=== PATIENT | female | born 1960 | race Hispanic/Latino ===

== ENCOUNTER 2017-09-27 21:19 | Inpatient (IN) | payer BC ==
[2017-09-27 21:28] VITALS: BMI 26.5
[2017-09-27 22:41] LABS: ALB/GLOB RATIO 1.6 (1.1-1.8); ALBUMIN 4.2 g/dL (3.0-4.8); ALT/SGPT 21 U/L (7-56); AST/SGOT 32 U/L (14-36); BLOOD UREA NITROGEN 21 mg/dL (7-21); CALCIUM 9.9 mg/dL (8.4-10.5); GFR AFRICAN-AMERICAN > 60; GFR NON-AFRICAN AMERICAN 57
[2017-09-27 22:52] LABS: HEMOGLOBIN 13.8 g/dL (12.0-16.0); MEAN CELL VOLUME 84.8 fl (80.0-105.0); MEAN CORPUSCULAR HEMOGLOBIN 29.2 pg (25.0-35.0); MEAN CORPUSCULAR HGB CONC 34.4 g/dl (31.0-37.0); MEAN PLATELET VOLUME 10.3 fl (7.0-11.0); RBC 4.73 10^6/uL (3.5-6.1); RED CELL DISTRIBUTION WIDTH 12.7 % (11.5-14.5); WHITE BLOOD COUNT 9.4 10^3/ul (4.5-11.0)
--- NOTE | 2017-09-27 23:00 | ED PDOC ---
Arrival/HPI - General Chief Complaint: Abdominal Pain Time Seen by Provider: 09/27/17 22:00 Historian: Patient - History of Present Illness Narrative History of Present Illness (Text): 09/27/17 22:35 Patient is a 57 year old female with a past medical history of Stage 4 ovarian cancer (s/p hysterectomy and chemo) presenting to the emergency room with 3 day history of abdominal pain. Patient woke up with epigastric pain on 2 days ago. She went to see her PMD who thought she had gastritis and prescribed protonix. The patient has been taking protonix without relief. The pain has gotten worse and has started to move down to the lower portion of her abdomen. She describes the pain as soreness with episodes of intermittent sharpness. The pain has been almost constant for the past 4-5 hours and caused her to come to the emergency room. She has been eating less the past but attempted to eat more this evening but the pain most severe now. She forced herself to vomit once on Monday but has not vomited since. She experienced diarrhea but has She denies fevers, chills, nausea, Time/Duration: < week Symptom Course: Intermittent Quality: Stabbing, Other (soreness) Past Medical History - Provider Review Nursing Documentation Reviewed: Yes - Infectious Disease Hx of Infectious Diseases: None - Reproductive Menopause: Yes - Past Medical History Past Medical History: No Previous - Cardiac Hx Cardiac Disorders: Yes Hx Mitral Valve Prolapse: Yes - Pulmonary Hx Respiratory Disorders: Yes Other/Comment: 04-21-16 COLLAPSE OF L LUNG LOWER LOBE,PARTIAL COLLAPSE ( ATELECTASIS) OF RIGHT LOWER LOBE - Neurological Hx Neurological Disorder: No - HEENT Hx HEENT Disorder: No - Renal Hx Renal Disorder: No - Endocrine/Metabolic Hx Endocrine Disorders: No - Hematological/Oncological Hx Blood Disorders: No - Integumentary Hx Dermatological Disorder: Yes Other/Comment: 04-21-16 ASCITES,BILATERAL PITTING EDEMA +3. - Musculoskeletal/Rheumatological Hx Musculoskeletal Disorders: No - Gastrointestinal Hx Gastrointestinal Disorders: Yes (ASCITES) Hx Diverticulitis: Yes Hx Gastroesophageal Reflux: Yes - Genitourinary/Gynecological Hx Genitourinary Disorders: Yes (C/S X 1) Hx Ovarian Cancer: Yes (Satge 4) Other/Comment: 04-21-26 CT SCAN SHOWED A MASS RIGHT ASPECT OF PELVIS-OVARIAN CYST - Psychiatric Hx Psychophysiologic Disorder: No Hx Anxiety: No Hx Bipolar Disorder: No Hx Depression: No Hx Emotional Abuse: No Hx Hallucinations: No Hx Panic Disorder: No Hx Post Traumatic Stress Disorder: No Hx Psychosis: No Hx Physical Abuse: No Hx Schizophrenia: No Hx Sexual Abuse: No Hx Substance Use: No - Surgical History Hx Section: Yes - Anesthesia Hx Anesthesia: Yes Hx Anesthesia Reactions: No Hx Malignant Hyperthermia: No - Suicidal Assessment Feels Threatened In Home Enviroment: No Family/Social History - Physician Review Nursing Documentation Reviewed: Yes Family/Social History: Unknown Family HX Smoking Status: Never Smoked Hx Alcohol Use: Yes (OCCASIONAL WINE) Hx Substance Use: No Hx Substance Use Treatment: No Allergies/Home Meds Allergies/Adverse Reactions: Allergies No Known Allergies Allergy (Verified 09/27/17 21:27) Home Medications: Home Meds Medication Instructions Recorded Confirmed Pantoprazole [Protonix EC Tab] 40 mg PO DAILY 09/27/17 09/27/17 Review of Systems - Physician Review All systems were reviewed & negative as marked: Yes - Review of Systems Constitutional: Normal. absent: Fatigue, Fevers Eyes: Normal. absent: Vision Changes ENT: Normal. absent: Sore Throat, Rhinorrhea Respiratory: Normal. absent: SOB Cardiovascular: Normal. absent: Chest Pain, Palpitations Gastrointestinal: Abdominal Pain, Diarrhea, Vomiting (once - 2 days ago), Appetite Changes (decreased). absent: Constipation, Nausea Musculoskeletal: Normal Skin: Normal. absent: Rash Neurological: Normal. absent: Headache Endocrine: Normal Psychiatric: Normal. absent: Anxiety, Depression Physical Exam Vital Signs Reviewed: Yes Vital Signs Temp Pulse Resp BP Pulse Ox 09/28/17 01:43 82 16 160/88 H 98 09/27/17 23:22 98.2 F 85 19 157/81 H 99 09/27/17 21:33 98.3 F 92 H 18 178/133 H 99 Temperature: Afebrile Blood Pressure: Hypertensive Pulse: Regular Respiratory Rate: Normal Appearance: Positive for: Non-Toxic, Ill-Appearing, Uncomfortable Pain Distress: None Mental Status: Positive for: Alert and Oriented X 3 - Systems Exam Head: Present: Atraumatic, Normocephalic Conjunctiva: Present: Normal Mouth: Present: Moist Mucous Membranes Nose (External): Present: Atraumatic Neck: Present: Normal Range of Motion Respiratory/Chest: Present: Clear to Auscultation, Good Air Exchange. No: Respiratory Distress, Accessory Muscle Use Cardiovascular: Present: Regular Rate and Rhythm, Normal S1, S2. No: Murmurs Abdomen: Present: Tenderness (diffuse ), Scars. No: Distention, Normal Bowel Sounds (diffuse), Peritoneal Signs, Rebound, Guarding, McBurney's Point Tender, Rovsing's Sign Present Back: Present: Normal Inspection Upper Extremity: Present: Normal Inspection. No: Cyanosis, Edema Lower Extremity: Present: Normal Inspection. No: Edema Neurological: Present: GCS=15, Speech Normal, Motor Func Grossly Intact Skin: Present: Warm, Dry, Normal Color. No: Rashes Psychiatric: Present: Alert, Oriented x 3, Normal Insight, Normal Concentration Medical Decision Making ED Course and Treatment: 09/27/17 22:24 Orders: * CBC * CMP * PTT * Morphine 6mg IVP 09/28/17 00:12 Patient is still in severe pain. * Morphine 4mg IVP 09/28/17 01:[address] discussed with patient and her that results are worrisome that she has mets to her bowel. Patient and her were very upset as they thought she was cancer free. She was informed of plan to admit to hospital primary for pain control. Patient agrees. A call was placed for patient's PMD Dr. All Marks for admission. 09/28/17 02:[address] Marks about possible mets to bowel. Agreed to take patient on his service. Admission order placed. Re-evaluation Time: 01:30 - Lab Interpretations Lab Results: 09/27/17 22:24 09/27/17 22:24 Lab Results 09/27/17 22:24: Sodium 138, Potassium 4.6, Chloride 102, Carbon Dioxide 26, Anion Gap 15, BUN 21, Creatinine 1.0, Est GFR ( Amer) > 60, Est GFR (Non- Af Amer) 57, Random Glucose 99, Calcium 9.9, Total Bilirubin 0.5, AST 32, ALT 21 , Alkaline Phosphatase 104, Total Protein 6.9, Albumin 4.2, Globulin 2.7, Albumin/Globulin Ratio 1.6 09/27/17 22:24: APTT 27.9 09/27/17 22:24: WBC 9.4 D, RBC 4.73, Hgb 13.8 D, Hct 40.1, MCV 84.8 D, MCH 29.2, MCHC 34.4, RDW 12.7, Plt Count 240, MPV 10.3 I have reviewed the lab results: Yes - RAD Interpretation Narrative RAD Interpretations (Text): 09/28/17 01:16 Abd/Pelvis CT w/ IV contrast: 1. Small volume ascites. 2. Peritoneal nodularity worrisome for carcinomatosis. Subpleural nodularity. This is increased as compared to March 23, 2017. 3. Wall thickening of a couple of loops of small bowel in the right lower quadrant suggestive of enteritis. Ischemia must be considered. Radiology Orders: 09/27/17 22:35 ABD & PELVIS IV CONTRAST ONLY [CT] Stat Medical Device Sales Representative: Radiologist - Medication Orders Current Medication Orders: Discontinued Medications Morphine Sulfate (Morphine) 6 mg IVP STAT STA Stop: 09/27/17 22:16 Last Admin: 09/27/17 22:39 Dose: 6 mg MAR Pain Assessment Document 09/27/17 22:39 GMI (Rec: 09/27/17 22:40 GMI [id number]) Pain Reassessment Is this a pain reassessment? Yes Sleep Is patient sleeping during reassessment? No Presence of Pain Presence of Pain Yes Pain Scale Used Pain Scale Used Numeric Location Pain Location Body Site Abdomen Description Description Constant Intensity of Pain at present 10 Pain Behavior Moaning Crying Alleviating Factors Medication IVP Administration Document 09/27/17 22:39 GMI (Rec: 09/27/17 22:40 GMI [id number]) Charges for Administration # of IVP Administrations 1 Morphine Sulfate (Morphine) 4 mg IVP STAT STA Stop: 09/28/17 00:13 Last Admin: 09/28/17 00:23 Dose: 4 mg MAR Pain Assessment Document 09/28/17 00:23 JOL (Rec: 09/28/17 00:23 JOL [id number]) Pain Reassessment Is this a pain reassessment? No Sleep Is patient sleeping during reassessment? No Presence of Pain Presence of Pain Yes Pain Scale Used Pain Scale Used Numeric Location Upper or Lower Lower Pain Location Body Site Abdomen Description Intensity of Pain at present 7 Pain Behavior Withdrawal from Touch Restlessness Facial Grimacing IVP Administration Document 09/28/17 00:23 JOL (Rec: 09/28/17 00:23 [id number]) Charges for Administration # of IVP Administrations 1 Morphine Sulfate (Morphine) 6 mg IVP ONCE PRN PRN Reason: Pain, moderate (4-7) Stop: 09/28/17 02:41 Disposition/Present on Arrival - Present on Arrival Any Indicators Present on Arrival: No History of DVT/PE: No History of Uncontrolled Diabetes: No Urinary Catheter: No History of Decub. Ulcer: No History Surgical Site Infection Following: None - Disposition Have Diagnosis and Disposition been Completed?: Yes Diagnosis: Intractable abdominal pain Disposition: HOSPITALIZED Disposition Time: 01:30 Patient Plan: Admission Patient Problems: Current Active Problems Problem Status Onset Intractable abdominal pain Acute Condition: GUARDED
[2017-09-28] MEDS ORDERED: Iohexol 350 MG/100 ML VIAL ONE (00:01)
[2017-09-28] MEDS ORDERED: Morphine 4 mg/ml ISec IVP STA (00:12)
[2017-09-28] MEDS ORDERED: HYDROmorphone 1 mg/ml ISec IVP PRN (06:44)
[2017-09-28] MEDS: Pantoprazole 40 mg EC Tab PO SCH (09:35)
[2017-09-28] MEDS: Sodium Chloride 0.9% 100 ML IV SCH ×2 (09:36→11:00)
--- NOTE | 2017-09-28 10:30 | CT ---
Date of service: 09/28/2017 PROCEDURE: CT Abdomen and Pelvis with contrast HISTORY: abdominal pain COMPARISON: 04/18/2017 CT TECHNIQUE: Contrast dose: 100 cc of Omni 350 Radiation dose: Total exam DLP = 871 mGy-cm. This CT exam was performed using one or more of the following dose reduction techniques: Automated exposure control, adjustment of the mA and/or kV according to patient size, and/or use of iterative reconstruction technique. FINDINGS: LOWER THORAX: Unremarkable. LIVER: Unremarkable. No gross lesion or ductal dilatation. GALLBLADDER AND BILE DUCTS: Unremarkable. PANCREAS: Unremarkable. No gross lesion or ductal dilatation. SPLEEN: Unremarkable. ADRENALS: Unremarkable. No mass. KIDNEYS AND URETERS: Unremarkable. No hydronephrosis. No solid mass. VASCULATURE: Unremarkable. No aortic aneurysm. BOWEL: There is partial small bowel obstruction in the pelvis on the right side. There multiple dilated loops. There is a peritoneal mass in this region as seen on image 57 series 2. This measures 2.7 x 3.5 cm. APPENDIX: Normal appendix. PERITONEUM: There are new discrete peritoneal metastases. These are most visible anterior to the spleen were the largest lesion measures 1.6 x 3.3 cm. Lesions are also seen adjacent to the right lobe of the liver. The largest lesion is seen between the abdominal wall and the right lobe of the liver measuring 1.5 cm in thickness and 10 cm in length. There is also increased ascites. LYMPH NODES: Unremarkable. No enlarged lymph nodes. BLADDER: Unremarkable. REPRODUCTIVE: Unremarkable. BONES: No acute fracture. OTHER FINDINGS: None. IMPRESSION: Peritoneal metastases and ascites with partial small bowel obstruction in the right lower quadrant. See comment
[2017-09-28] MEDS ORDERED: Propofol 10 mg/ml Inj (20 ML) ONE (11:51)
[2017-09-28] MEDS ORDERED: Lidocaine 1% Inj (20ml) ONE (11:54)
--- NOTE | 2017-09-28 12:29 | CP.PCM.CON ---
History of Present Illness - History of Present Illness History of Present Illness: Akila Harry, PGY2, Heme-Onc Consult Note for Dr Manning: CC: lower abdominal pain 57 year old female with PMH stage IV ovarian carcinoma (serous or endometroid - dx 04/2016) s/p hysterectomy, oophorectomy, cholecystectomy (07/2016), 7 cycles of chemotherapy, presents for abdominal pain. Patient locates the pain as lower abdominal pain, radiating to epigastric area, crampy, 8/10, for past 4 days. States that she went to PMD and was given protonix, did not improve. Patient has accompanying watery diarrheal episodes, 2-4 per day. denies hematochezia, fevers, chills. Reports nausea. Patient states that she had a CAT abd pelvis in 03/2017, which did not show significant findings. In ED, patient afebrile, hemodynamically stable. CT abd pelvis shows omental, peritoneal mets, partial SBO, small ascites. Given morphine IV, made NPO. PMD: stage IV ovarian cancer (dx 04/2016) s/p hysterectomy, oophorectomy, cholecystectomy; diverticulosis PSH: hysterectomy, oophorectomy, cholecystectomy (07/2016) NKA FH: mother, breast cancer, mets to bone Aunt, breast cancer Cousin, ovarian cancer, SH: denies tobacco use. Occasional drinks wine. Denies drug use. Lives with . walks by self. Review of Systems - Review of Systems All systems: reviewed and no additional remarkable complaints except Review of Systems: as per HPI Past Patient History - Infectious Disease Hx of Infectious Diseases: None - Past Medical History & Family History Past Medical History?: No - Past Social History Smoking Status: Never Smoked - CARDIAC Hx Cardiac Disorders: Yes Hx Mitral Valve Prolapse: Yes - PULMONARY Hx Respiratory Disorders: Yes - NEUROLOGICAL Hx Neurological Disorder: No - HEENT Hx HEENT Problems: No - RENAL Hx Chronic Kidney Disease: No - ENDOCRINE/METABOLIC Hx Endocrine Disorders: No - HEMATOLOGICAL/ONCOLOGICAL Hx Blood Disorders: No - INTEGUMENTARY Hx Dermatological Problems: Yes - MUSCULOSKELETAL/RHEUMATOLOGICAL Hx Musculoskeletal Disorders: No Hx Falls: No - GASTROINTESTINAL Hx Gastrointestinal Disorders: Yes (ASCITES) Hx Diverticulitis: Yes Hx Gastroesophageal Reflux: Yes - GENITOURINARY/GYNECOLOGICAL Hx Genitourinary Disorders: Yes - PSYCHIATRIC Hx Psychophysiologic Disorder: No Hx Substance Use: No - SURGICAL HISTORY Hx Surgeries: Yes Other/Comment: Polyps removed - ANESTHESIA Hx Anesthesia: Yes Hx Anesthesia Reactions: No Hx Malignant Hyperthermia: No Meds Allergies/Adverse Reactions: Allergies Allergy/AdvReac Type Severity Reaction Status Date / Time No Known Allergies Allergy Verified 09/27/17 21:27 - Medications Medications: Current Medications Hydromorphone HCl (Dilaudid) 1 mg IVP Q4H PRN PRN Reason: Pain, severe (8-10) Morphine Sulfate (Morphine) 6 mg IVP ONCE PRN PRN Reason: Pain, moderate (4-7) Last Admin: 09/28/17 05:09 Dose: 6 mg Ondansetron HCl (Zofran Inj) 4 mg IVP Q4H PRN PRN Reason: Nausea/Vomiting Last Admin: 09/28/17 09:40 Dose: 4 mg Pantoprazole Sodium (Protonix Ec Tab) 40 mg PO ACB GARCIA Last Admin: 09/28/17 09:35 Dose: 40 mg Physical Exam - Constitutional Appears: Non-toxic, No Acute Distress - Head Exam Head Exam: ATRAUMATIC, NORMOCEPHALIC - Eye Exam Eye Exam: EOMI, PERRL. absent: Conjunctival injection, Nystagmus, Scleral icterus Pupil Exam: NORMAL ACCOMODATION, PERRL. absent: Irregular, Miosis, Unequal - ENT Exam ENT Exam: Mucous Membranes Moist - Neck Exam Neck exam: Positive for: Full Rom - Respiratory Exam Respiratory Exam: Clear to Auscultation Bilateral, NORMAL BREATHING PATTERN. absent: Accessory Muscle Use, Rhonchi, Wheezes, Stridor - Cardiovascular Exam Cardiovascular Exam: RRR, +S1, +S2. absent: Systolic Murmur - GI/Abdominal Exam GI & Abdominal Exam: Hypoactive Bowel Sounds, Soft, Tenderness (diffuse tenderness). absent: Guarding, Rigid Additional comments: small ascites, neg fluid wave test - Extremities Exam Extremities exam: Negative for: calf tenderness, pedal edema - Back Exam Back exam: NORMAL INSPECTION - Neurological Exam Neurological exam: Alert, Oriented x3 - Psychiatric Exam Psychiatric exam: Normal Affect, Normal Mood - Skin Skin Exam: Dry, Normal Color, Warm Results - Vital Signs Recent Vital Signs: Last Vital Signs Temp 98.5 F 09/28/17 08:39 Pulse 102 H 09/28/17 08:39 Resp 20 08/02/18 08:39 BP 142/88 09/28/17 08:39 Pulse Ox 98 09/28/17 08:39 - Labs Result Diagrams: 09/27/17 22:24 09/27/17 22:24 Labs: Laboratory Results - last 24 hr 09/28/17 09:50 Lactic Acid 0.8 Assessment & Plan - Assessment and Plan (Free Text) Assessment: 57 year old female with PMH stage IV ovarian carcinoma (serous or endometroid - dx 04/2016) s/p hysterectomy, oophorectomy, cholecystectomy (07/2016), 7 cycles of chemotherapy, presents for abdominal pain, found to have peritoneal mets, partial SBO, small ascites: - Will discuss case with patient's Oncologist Dr Soraida Best at [facility] F/u surgery, GI consult recs - CT abd pelvis: new discrete peritoneal mets. anterior to spleen, largest lesion 1.6x3.3 cm, lesion adjacent to right lobe of liver. Largest lesion seen btw abdominal wall and right lobe of liver, measuring 1.5 cm thicknes and 10 cmin length. - CT abd pelvis in 02/2017: did not show the above mentioned lesions - If patient needs surgery, then would be able to obtain biopsy of mets at the time - may be able to use same chemotherapy regimen if recurrent is occurring in more than 6 months - pain control Case discussed with Dr Manning.
--- NOTE | 2017-09-28 15:24 | CP.PCM.CON ---
History of Present Illness - History of Present Illness History of Present Illness: Surgery Consult Note for Dr. Marie 57 y o female PMhx stage IV ovarian carcinoma (diagnosed in 04/2016) s/p hysterectomy, b/l salpingo-oophorectomy, cholecystectomy (07/2016), 7 cycles of chemotherapy (last tx 12/2016), diverticulitis/colitis (), who presents with diffuse lower abdominal pain, cramping x 4 days. Pt went to PMD on day symptoms started, was given protonix and told it was likely secondary to gastritis or a gastric ulcer. Pt states pain worsens w/ meals, 10/06 in severity , stated that the pain got worse to the point yesterday evening that she had her bring her to the ED. Also c/o diarrhea over past several days, 3 episodes/day, last episode was last evening, mix of watery/soft-formed stool, non-bloody. Pt also admits to associated nausea, and reports 1 episode vomiting this am when she was inpatient. Admits to constipation, but reports passing flatus earlier this am. Denies fever, chills, hematochezia, hemoptysis, chest pain, sob, urinary complaints, or other symptoms. Pt reports of last abd CT in Mar 2017 which demonstrated no new findings. Sales Order Coordinator oncologist Dr. Soraida Murrieta ([facility]). In ED, pt was afebrile and hemodynamically stable. CT abd pelvis demonstrated omental, peritoneal mets, partial SBO, small ascites. Pt was given IV morphine and made NPO. PMhx: as described above PSurgHx: as described above Allergies: NKDA Meds: Protonix Fam hx: Mom passed from metastatic breast ca, cousin on father's side had ovarian ca, mom's sister had breast ca Soc hx: Denies smoking, alcohol, or drug use 12 point ROS as per HPI, otherwise negative. Review of Systems - Constitutional Constitutional: As Per HPI - Gastrointestinal Gastrointestinal: As Per HPI, Abdominal Pain, Constipation, Diarrhea, Nausea Past Patient History - Infectious Disease Hx of Infectious Diseases: None - Past Medical History & Family History Past Medical History?: No - Past Social History Smoking Status: Never Smoked - CARDIAC Hx Cardiac Disorders: Yes Hx Mitral Valve Prolapse: Yes - PULMONARY Hx Respiratory Disorders: Yes - NEUROLOGICAL Hx Neurological Disorder: No - HEENT Hx HEENT Problems: No - RENAL Hx Chronic Kidney Disease: No - ENDOCRINE/METABOLIC Hx Endocrine Disorders: No - HEMATOLOGICAL/ONCOLOGICAL Hx Blood Disorders: No - INTEGUMENTARY Hx Dermatological Problems: Yes - MUSCULOSKELETAL/RHEUMATOLOGICAL Hx Musculoskeletal Disorders: No Hx Falls: No - GASTROINTESTINAL Hx Gastrointestinal Disorders: Yes (ASCITES) Hx Diverticulitis: Yes Hx Gastroesophageal Reflux: Yes - GENITOURINARY/GYNECOLOGICAL Hx Genitourinary Disorders: Yes - PSYCHIATRIC Hx Psychophysiologic Disorder: No Hx Substance Use: No - SURGICAL HISTORY Hx Surgeries: Yes Other/Comment: Polyps removed - ANESTHESIA Hx Anesthesia: Yes Hx Anesthesia Reactions: No Hx Malignant Hyperthermia: No Meds Allergies/Adverse Reactions: Allergies Allergy/AdvReac Type Severity Reaction Status Date / Time No Known Allergies Allergy Verified 09/27/17 21:27 - Medications Medications: Current Medications Hydromorphone HCl (Dilaudid) 1 mg IVP Q4H PRN PRN Reason: Pain, severe (8-10) Morphine Sulfate (Morphine) 6 mg IVP ONCE PRN PRN Reason: Pain, moderate (4-7) Last Admin: 09/28/17 05:09 Dose: 6 mg Ondansetron HCl (Zofran Inj) 4 mg IVP Q4H PRN PRN Reason: Nausea/Vomiting Last Admin: 09/28/17 09:40 Dose: 4 mg Pantoprazole Sodium (Protonix Ec Tab) 40 mg PO ACB GARCIA Last Admin: 09/28/17 09:35 Dose: 40 mg Physical Exam - Constitutional Appears: Non-toxic, No Acute Distress - Head Exam Head Exam: ATRAUMATIC, NORMAL INSPECTION - Eye Exam Eye Exam: EOMI, Normal appearance, PERRL - ENT Exam ENT Exam: Mucous Membranes Moist - Respiratory Exam Respiratory Exam: Clear to Auscultation Bilateral, NORMAL BREATHING PATTERN - Cardiovascular Exam Cardiovascular Exam: REGULAR RHYTHM, +S1, +S2 - GI/Abdominal Exam Additional comments: Diffuse tenderness to palpation in all 4 quadrants, distended, decreased bowel sounds x4 - Extremities Exam Extremities exam: Positive for: normal capillary refill, normal inspection, pedal pulses present - Back Exam Back exam: FULL ROM, NORMAL INSPECTION - Neurological Exam Neurological exam: Alert, CN II-XII Intact, Oriented x3 - Skin Skin Exam: Dry, Intact, Normal Color, Warm Results - Vital Signs Recent Vital Signs: Last Vital Signs Temp 98.5 F 09/28/17 08:39 Pulse 102 H 09/28/17 08:39 Resp 20 09/28/17 08:39 BP 142/88 09/28/17 08:39 Pulse Ox 98 09/28/17 08:39 - Labs Result Diagrams: 09/29/17 05:30 09/29/17 05:30 Labs: Laboratory Results - last 24 hr 09/28/17 09:50 Lactic Acid 0.8 Assessment & Plan - Assessment and Plan (Free Text) Assessment: 57 y o female PMhx stage IV ovarian carcinoma (diagnosed in 04/2016) s/p hysterectomy, b/l salpingo-oophorectomy, cholecystectomy (07/2016), 7 cycles of chemotherapy (last tx 12/2016), diverticulitis/colitis (), who presents with diffuse lower abdominal pain, cramping x 4 days. Found to have peritoneal mets, partial SBO, small ascites. Plan: -No plan for acute surgical intervention at this time -F/u oncology, GI recs -CT abd pelvis demonstrates new discrete peritoneal mets, anterior to spleen, largest lesion 1.6 x 3.3 cm, lesion adjacent to R lobe of liver. Largest lesion seen btwn abd wall and R lobe of liver, measuring 1.5 cm thickness and 10 cm in length. -Prior CT in 02/2017 did not demonstrate above findings -Pain control -Further recommendations as per Dr. Frank Fitzgerald, DO PGY-1
--- NOTE | 2017-09-28 18:12 | CON ---
Copied To: Xavier Shaver MD Attending MD: Xavier Shaver MD DATE: 09/28/2017 CONSULTATION IN GASTROENTEROLOGY REQUESTING PHYSICIAN: All June MD. REASON FOR CONSULT: I have been asked to see this 57-year-old female diagnosed with stage IV ovarian cancer in 03/2016, status post hysterectomy and oophorectomy as well as chemotherapy, who comes to the hospital with 3 days of diffuse abdominal pain, diarrhea and 1 day of nausea, vomiting. The patient has had no appetite since her symptoms began on Monday. CT scan of the abdomen and pelvis performed in the emergency room shows omental metastasis in the left upper quadrant with ascites as well as mural thickening with dilatation of the distal small bowel. She denies any fevers, chills, hematemesis or melena. PAST MEDICAL HISTORY: Notable for stage IV ovarian cancer, diverticulitis, atelectasis and pleural effusion. PAST SURGICAL HISTORY: Notable for . SOCIAL HISTORY: She denies cigarette smoking. She does consume alcohol on a social basis. FAMILY HISTORY: Noncontributory. REVIEW OF SYSTEMS: Fourteen-point review of systems is notable for abdominal pain, nausea, vomiting and diarrhea. MEDICATIONS AT HOME: Include pantoprazole. PHYSICAL EXAMINATION: GENERAL: Middle-aged female, lying in bed, appearing comfortable. VITAL SIGNS: Reveal temperature of 98.5, blood pressure 142/88, heart rate of 102. HEENT: Reveals sclerae to be white. Conjunctivae pink. NECK: Supple. CHEST: Reveals lungs to be clear. HEART: Reveals regular rate and rhythm. ABDOMEN: Distended with ascites. There is mild diffuse tenderness. No rebound. No guarding. EXTREMITIES: Show no edema. LABORATORY DATA: Reveal white blood cell count 9.4, hemoglobin 13.8. Chemistries reveal normal electrolytes. Again, CT scan of the abdomen and pelvis reveal omental metastasis with ascites and mural thickening and dilatation of the small bowel, most likely secondary to carcinomatosis. RECOMMENDATIONS: 1. CA 19-9 level. 2. Continue supportive care including Zofran as needed for nausea and vomiting and vomiting persists, the patient may benefit from NG tube decompression. She is asking that this not be performed at this time. She vomited this morning and feels better. 3. Would keep n.p.o. 4. Would obtain Oncology consult. Note, the patient has stage IV recurrent ovarian cancer and her prognosis is extremely poor. Xavier Shaver MD [facility] # [id number]
--- NOTE | 2017-09-28 19:13 | HP ---
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 intake. The patient was initially seen in her PMD's office 3 days prior to presentation to the ED for complaint of epigastric abdominal discomfort which started after eating a hamburger. She initially endorsed mild dyspepsia associated with some bloating and epigastric pain. The patient has a history of GERD but has been off her PPI for several months. Examination at that time disclosed epigastric tenderness. The patient was restarted on her Protonix and advised that if her symptoms did not improve over the course of the following week or if her symptoms had increased to return to her PMD or to present to the ED. Over the following 36 hours she was noted to have no improvement in her symptoms and as such opted for ED evaluation. Upon arrival to the ED she was found to be afebrile and hemodynamically stable however in moderate distress secondary to epigastric abdominal pain. Routine laboratory studies were unremarkable but a CT of the abdomen and pelvis demonstrated a peritoneal nodularity worrisome for carcinomatosis and a mild small bowel obstruction. She was subsequently admitted to the general medical wen for continued management. PAST MEDICAL HISTORY: As per HPI, also mitral valve prolapse. PAST SURGICAL HISTORY: As per HPI, also , right hemicolectomy with ileocolonic anastomosis and cholecystectomy. ALLERGIES: NKDA. MEDICATIONS: Tylenol, Mylanta, Colace, and Protonix 40 mg p.o. daily. FAMILY HISTORY: Significant for breast cancer in her mother, ovarian cancer in her paternal cousins and COPD and CAD in her father. SOCIAL HISTORY: The patient has no history of toxic habits. She is and lives with her . REVIEW OF SYSTEMS: A 12-point review of systems is negative except as per HPI. PHYSICAL EXAMINATION: VITAL SIGNS: Temperature 98.5, pulse 100, blood pressure 142/88, respiratory rate 18, and oxygen saturation 99% on room air. GENERAL: Mild distress secondary to epigastric abdominal pain. HEENT: PERRL. EOMI. No scleral icterus. No conjunctival pallor. Dry mucous membranes are noted. NECK: No JVD, no bruits. LUNGS: Decreased breath sounds at the bases. CARDIOVASCULAR: Tachycardic. Normal S1 and S2. ABDOMEN: Hypoactive bowel sounds, soft, tender to palpation to epigastrium with voluntary guarding. No rigidity, no tympany. EXTREMITIES: No edema. NEUROLOGIC: Awake, alert, and oriented x 3. No focal motor deficits. LABORATORY DATA: WBC 9.4, hemoglobin 14, hematocrit 40, and platelets 240. Chemistry reviewed and unremarkable. IMAGING STUDIES: CT of the abdomen and pelvis with contrast is pending. ASSESSMENT: The patient is a 57 year old woman with a past medical history of stage GARIMA adenocarcinoma of mullerian/gynecologic tract origin s/p chemotherapy s/p exploratory laparotomy s/p tumor debulking s/p GEOFF/BSO, GERD and diverticulosis who presented for a 3 day history of epigastric abdominal pain associated with nausea, vomiting and inability to tolerate p.o. intake. PLAN: 1. Small bowel obstruction. CT abdomen reviewed and no urgent need for NG tube placement. Continue with bowel rest. Continue Zofran and Dilaudid as needed. Continue IVF hydration. Input from Dr. Shaver and Dr. Marie appreciated. 2. Stage Garima adenocarcinoma of Mullerian tract origin, now with likely omental mets. Dr. Manning has been consulted for further evaluation and recommendations. The patient follows regularly at [facility] [place] with Dr. Soraida Ni. We will coordinate care with their facility. 3. GERD. Resume Protonix 40 mg IV daily. 4. Prophylaxis. Continue Protonix for GI prophylaxis. DVT prophylaxis not indicated as the patient is ambulatory. CODE STATUS: Full code. All June MD MTDIron
[2017-09-29 06:33] LABS: BASO # 0.03 K/mm3 (0.0-2.0); BASO % 0.5 % (0.0-3.0); EOS # 0.2 (0.0-0.7); EOS % 3.8 % (1.5-5.0); GRAN # 3.73 (1.4-6.5); GRAN % 59.7 % (50.0-68.0); HEMOGLOBIN 12.7 g/dL (12.0-16.0); LYMPH # 1.6 (1.2-3.4); LYMPH % 25.8 % (22.0-35.0); MEAN CELL VOLUME 86.8 fl (80.0-105.0); MEAN CORPUSCULAR HEMOGLOBIN 28.8 pg (25.0-35.0); MEAN CORPUSCULAR HGB CONC 33.2 g/dl (31.0-37.0); MEAN PLATELET VOLUME 10.1 fl (7.0-11.0); MONO # 0.6 (0.1-0.6); MONO % 10.2 % (1.0-6.0); RBC 4.41 10^6/uL (3.5-6.1); WHITE BLOOD COUNT 6.3 10^3/ul (4.5-11.0)
[2017-09-29 07:05] LABS: ALB/GLOB RATIO 1.4 (1.1-1.8); ALBUMIN 3.7 g/dL (3.0-4.8); ALT/SGPT 28 U/L (7-56); AST/SGOT 38 U/L (14-36); BLOOD UREA NITROGEN 22 mg/dL (7-21); GFR AFRICAN-AMERICAN > 60; GFR NON-AFRICAN AMERICAN > 60
--- NOTE | 2017-09-29 09:17 | PN ---
Copied To: Xavier Shaver MD Attending MD: Xavier Shaver MD DATE: 09/29/2017 SUBJECTIVE: The patient is lying in bed. She feels a little better. She has not had any further vomiting in 24 hours. Her abdominal pain is less. She is hungry and is asking for something to eat. She has been n.p.o. She denies any fevers or chills. She has been passing flatus, but no bowel movements since her hospitalization. Her medications currently include Dilaudid, morphine sulfate, pantoprazole and Zofran. OBJECTIVE: VITAL SIGNS: Reveal temperature of 98.1, blood pressure 147/81, heart rate of 81. HEENT: Reveal sclerae to be white. Oral mucosa slightly dry. NECK: Supple. CHEST: Reveal lungs to be clear. HEART: Exam reveals regular rate and rhythm. ABDOMEN: Distended. Mild diffuse tenderness. No rebound, no guarding. EXTREMITIES: Show no edema. DATA: Laboratory data reveal white blood cell count 6.3, hemoglobin 12.7. Chemistries show BUN 22, creatinine 0.9, AST 38. CA-125 is 894. IMPRESSION: This is a 57-year-old female with history of stage IV ovarian cancer diagnosed approximately 18 months ago, now with abdominal pain, diarrhea and vomiting with CT scan of the abdomen and pelvis showing carcinomatosis peritonei with omental metastasis. Mural thickening of the small bowel with dilatation. The patient's prognosis is extremely poor. She is asking for something to eat. RECOMMENDATIONS: 1. We will start the patient on full-liquid diet. If the patient has symptoms of nausea and vomiting, we will have to make her n.p.o. again. 2. Follow up with Oncology. There are no plans for surgical intervention at this time as per rn medical surgical. Xavier Shaver MD
[2017-09-29] MEDS: Pantoprazole 40 mg EC Tab PO SCH (09:40)
--- NOTE | 2017-09-29 15:42 | CP.PCM.PN ---
Subjective - Date & Time of Evaluation Date of Evaluation: 09/29/17 Time of Evaluation: 15:28 - Subjective Subjective: Akila Harry, PGY2, Heme-Onc Progress Note for Dr Manning: Patient seen and examined at bedside. No acute events overnight. Spoke with Dr Soraida Ni's (hvac tech onc) nurse practitioner, Tashia, at [facility] for patient' s prior treatments this AM, fax documents communicated with Dr Manning. Patient reports that her lower abdominal pain is better today, she is passing flatus, and tolerating liquid diet this AM, and lunch. Denies fevers, chills, nausea, vomiting, leg swelling, urinary complaints. Objective - Vital Signs/Intake and Output Vital Signs (last 24 hours): Temp Pulse Resp BP Pulse Ox 98.1 F 81 19 147/81 97 09/29/17 07:43 09/29/17 07:43 09/29/17 07:43 09/29/17 07:43 09/29/17 07:43 - Medications Medications: Current Medications Hydromorphone HCl (Dilaudid) 1 mg IVP Q4H PRN PRN Reason: Pain, severe (8-10) Morphine Sulfate (Morphine) 6 mg IVP ONCE PRN PRN Reason: Pain, moderate (4-7) Last Admin: 09/28/17 05:09 Dose: 6 mg Ondansetron HCl (Zofran Inj) 4 mg IVP Q4H PRN PRN Reason: Nausea/Vomiting Last Admin: 09/28/17 09:40 Dose: 4 mg Pantoprazole Sodium (Protonix Ec Tab) 40 mg PO ACB GARCIA Last Admin: 09/29/17 09:40 Dose: 40 mg - Labs Labs: 09/29/17 05:30 09/29/17 05:30 APTT 27.9 Seconds (25.1-36.5) 09/27/17 22:24 - Additional Findings Additional findings: - Constitutional Appears: Non-toxic, No Acute Distress - Head Exam Head Exam: ATRAUMATIC, NORMOCEPHALIC - Eye Exam Eye Exam: EOMI, PERRL. absent: Conjunctival injection, Nystagmus, Scleral icterus Pupil Exam: NORMAL ACCOMODATION, PERRL. absent: Irregular, Miosis, Unequal - ENT Exam ENT Exam: Mucous Membranes Moist - Neck Exam Neck exam: Positive for: Full Rom - Respiratory Exam Respiratory Exam: Clear to Auscultation Bilateral, NORMAL BREATHING PATTERN. absent: Accessory Muscle Use, Rhonchi, Wheezes, Stridor - Cardiovascular Exam Cardiovascular Exam: RRR, +S1, +S2. absent: Systolic Murmur - GI/Abdominal Exam GI & Abdominal Exam: Hypoactive Bowel Sounds, Soft, Tenderness (diffuse tenderness). absent: Guarding, Rigid Additional comments: small ascites, neg fluid wave test - Extremities Exam Extremities exam: Negative for: calf tenderness, pedal edema - Back Exam Back exam: NORMAL INSPECTION - Neurological Exam Neurological exam: Alert, Oriented x3 - Psychiatric Exam Psychiatric exam: Normal Affect, Normal Mood - Skin Skin Exam: Dry, Normal Color, Warm Assessment and Plan - Assessment and Plan (Free Text) Assessment: 57 year old female with PMH stage IV serous ovarian carcinoma dx 04/2016 s/p hysterectomy, oophorectomy, cholecystectomy (07/2016), 6 cycles of chemotherapy ( carboplatin/paclitaxel), presents for abdominal pain, found to have peritoneal mets, partial SBO, small ascites: - Discussed case with patient's Oncologist Dr Soraida Ni's BUDGET CLERK, Tashia at [facility]. States that patient was diagnosed with Stage IV serous ovarian carcinoma, received 6 doses of carboplatin/paclitaxel chemotherapy (05/20/16-) with oopherectomy, hysterectomy, cholecystectomy. Patient was last seen at the office in 02/2017 with repeat CAT abd pelvis which was neg for new changes. Patient failed to follow up at the office in 05/2017. - Surgery recs appreciate. no acute surgical intervention - Gi consult appreciated. Started liquid diet. - CT abd pelvis: new discrete peritoneal mets. anterior to spleen, largest lesion 1.6x3.3 cm, lesion adjacent to right lobe of liver. Largest lesion seen btw abdominal wall and right lobe of liver, measuring 1.5 cm thicknes and 10 cmin length. - CT abd pelvis in 02/2017: did not show the above mentioned lesions - Given extensive disease and prior staging, patient may benefit from further chemotherapy. However, debulking prior to chemo may be useful as well. - pain control Case discussed with Dr Manning.
--- NOTE | 2017-09-30 00:16 | PN ---
Copied To: Rodolfo June MD Attending MD: Rodolfo June MD DATE: 09/29/2017 LOCATION: The patient is currently in room 369, bed 2. SUBJECTIVE: Her only complaint is increased abdominal pain. There have been no acute events overnight. PHYSICAL EXAMINATION: VITAL SIGNS: Temperature of 98.1, blood pressure 147/81, pulse rate of 81, respiratory rate of 19 with an O2 saturation of 97% on room air. HEENT: PERRLA, EOMI. No icterus is present. NECK: Supple with full range of motion. No bruits or adenopathy are appreciated. LUNGS: Clear to auscultation and percussion bilaterally. HEART: With a regular rate and rhythm. No murmurs. ABDOMEN: Soft, distended. There is no pain on palpation. Bowel sounds are minimally positive. NEUROLOGICAL: The patient is intact. LABORATORY DATA: CBC is entirely within normal limits. Chemistry is also essentially normal with a BUN of 22 and creatinine of . CA-125 antigen is 125. ASSESSMENT AND PLAN: The patient has a history of metastatic cancer disease. We will continue current regimen. Rodolfo June MD
[2017-09-30 07:07] LABS: BASO # 0.02 K/mm3 (0.0-2.0); BASO % 0.3 % (0.0-3.0); EOS # 0.2 (0.0-0.7); EOS % 3.5 % (1.5-5.0); GRAN # 3.59 (1.4-6.5); GRAN % 62.7 % (50.0-68.0); HEMOGLOBIN 12.7 g/dL (12.0-16.0); LYMPH # 1.5 (1.2-3.4); LYMPH % 25.3 % (22.0-35.0); MEAN CELL VOLUME 84.6 fl (80.0-105.0); MEAN CORPUSCULAR HEMOGLOBIN 28.3 pg (25.0-35.0); MEAN CORPUSCULAR HGB CONC 33.4 g/dl (31.0-37.0); MEAN PLATELET VOLUME 10.2 fl (7.0-11.0); MONO # 0.5 (0.1-0.6); MONO % 8.2 % (1.0-6.0); RBC 4.49 10^6/uL (3.5-6.1); RED CELL DISTRIBUTION WIDTH 12.6 % (11.5-14.5); WHITE BLOOD COUNT 5.7 10^3/ul (4.5-11.0)
[2017-09-30 07:18] LABS: ALB/GLOB RATIO 1.4 (1.1-1.8); ALBUMIN 3.8 g/dL (3.0-4.8); ALT/SGPT 21 U/L (7-56); AST/SGOT 34 U/L (14-36); BLOOD UREA NITROGEN 17 mg/dL (7-21); CALCIUM 9.2 mg/dL (8.4-10.5); GFR AFRICAN-AMERICAN > 60; GFR NON-AFRICAN AMERICAN > 60
[2017-09-30 08:57] VITALS: RESP 18
[2017-09-30] MEDS: Pantoprazole 40 mg EC Tab PO SCH (09:46)
--- NOTE | 2017-09-30 11:56 | PN ---
SUBJECTIVE: The patient was seen and examined at bedside on the remote telemetry wen. No acute events overnight. She remains afebrile, hemodynamically stable and with continued improvement in her abdominal discomfort. The patient states she is tolerating her full-liquid diet without difficulties, reports passing flatus and reports 2 small normal bowel movements. Otherwise she feels significantly improved since admission and offers no complaints. OBJECTIVE VITAL SIGNS: Temperature 98.5, pulse 77, blood pressure 123/78, respiratory rate 19, oxygen saturation 96% on room air. GENERAL: No apparent distress. HEENT: PERRL, EOMI. No scleral icterus. No conjunctival pallor. NECK: No JVD. No bruits. LUNGS: Clear to auscultation. CARDIOVASCULAR: Regular rate and rhythm. Normal S1 and S2. ABDOMEN: Normoactive bowel sounds, soft, minimal tenderness to palpation to lower abdomen with voluntary guarding. No rigidity. No tympany. EXTREMITIES: No edema. NEUROLOGIC: Awake, alert and oriented x 3. No focal motor deficits. LABORATORY DATA: CBC reviewed and unremarkable. CMP reviewed and unremarkable. ASSESSMENT: The patient is a 57 year old woman with a past medical history of stage Jay adenocarcinoma of Mullerian/gynecologic tract origin s/p chemotherapy s/p ex- lap s/p debulking s/p GEOFF/BSO, GERD and diverticulosis who presented for a 3 day history of epigastric abdominal pain associated with nausea, vomiting and inability to tolerate p.o. intake and was admitted for management of small bowel obstruction. PLAN: 1. Small bowel obstruction, resolving. Input from Dr. Shaver and Dr. Marie greatly appreciated. Continue with Zofran and Dilaudid as needed. We will advance diet. 2. Stage Jay adenocarcinoma of the Mullerian tract origin. Input from Dr. Manning appreciated. The patient reports that she will like to continue follow up at [facility] with Dr. Soraida Ni upon discharge. We will ensure that her medical records from this hospitalization be transferred to Dr. Ni. 3. GERD. Continue Protonix 40 mg IV daily. 4. Prophylaxis. Continue Protonix for GI prophylaxis. DVT prophylaxis is not indicated as the patient is ambulatory. CODE STATUS: Full code. All June MD [facility] # [id number] UNIQUE
--- NOTE | 2017-09-30 12:13 | PN ---
Copied To: Xavier Shaver MD Attending MD: Xavier Shaver MD DATE: 09/30/2017 SUBJECTIVE: The patient is lying in bed, comfortable. She is tolerating a full-liquid diet. She has not had any further nausea, vomiting or abdominal pain. She is requesting solid foods. She is also requesting discharge if her diet is tolerated. She has an appointment with her oncologist, Dr. Soraida Ni at the [facility] [place] early next week and would like to be able to make that appointment. She denies any fevers or chills. Her medications currently include Dilaudid IV p.r.n., morphine sulfate IV p.r.n., Protonix 40 mg once a day and Zofran 4 mg IV p.r.n. OBJECTIVE: VITAL SIGNS: Reveal temperature of 97.5, blood pressure 141/80, heart rate of 59. HEENT: Reveal sclerae to be white. Conjunctivae pink. NECK: Supple. CHEST: Lungs are clear. HEART: Exam reveals a regular rate and rhythm. ABDOMEN: Softly distended with ascites, nontender. No mass. EXTREMITIES: Show no edema. DATA: Laboratory data reveal white blood cell count 5.7, hemoglobin 12.7. Chemistries reveal normal electrolytes. IMPRESSION: This is a 57-year-old female with stage IV ovarian cancer, now with omental metastasis and carcinomatosis peritonei. She did have some dilated loops of small bowel with mural thickening. Her symptoms of abdominal pain and vomiting have improved. Her long-term prognosis is extremely poor. RECOMMENDATIONS: We will try a low-residue soft diet. If tolerated, the patient can be discharged home for followup with her oncologist, Dr. Soraida Ni at the [facility] [place]. Xavier Shaver MD
--- NOTE | 2017-09-30 19:40 | PN ---
Copied To: Rey Conte MD Attending MD: Rey Conte MD DATE: 09/30/2017 This is Andra Washington's hospital visit on the medical floor. For Dr. Manning. SUBJECTIVE: The patient is a 57-year-old seen lying awake in bed, in no acute distress, reporting that she had passed gas with the patient having been admitted two days prior for what appear to have been an obstructive gastrointestinal complaint. This has since improved with testing showing dilated loops with small bowel mural thickening. Unfortunately, the patient suffers from stage IV ovarian cancer with omental metastasis and carcinomatosis of the peritoneum. Plans are to have followup at the cancer institute in [place] once she is stable for debulking and eventually treatment as indicated. Her CA-125 recently was tested at 894. PHYSICAL EXAMINATION: VITAL SIGNS: Temperature 97.5, pulse 59, respirations 18, blood pressure 141/80, and pulse ox 94%. HEENT: Unremarkable. Tongue is moist and midline. NECK: Supple. HEART: Regular rate. LUNGS: Clear. ABDOMEN: Minimally distended with minimal tenderness to gentle palpation. EXTREMITIES: No edema. SKIN: Warm and dry. NEUROLOGIC: Awake, alert, and oriented x3. LABORATORY DATA: Patient's labs were done. White blood cell count of 5.7, hemoglobin of 12.7, hematocrit 38, and platelet count 210,000. Chem metabolic panel completely within normal range. Again with a CA-125 of 894 done two days prior. ASSESSMENT: Stage IV serous ovarian carcinoma, status post hysterectomy, status post treatment with carboplatin plus taxol with peritoneal metastases, resolving small bowel obstruction. PLAN: After conversation with Dr. Manning is to continue monitoring clinically with transfer/discharge to Dr. Soraida Ni's service at [facility] for treatment with debulking and further treatment as per her recommendations. We will follow up with Dr. Manning in the future should she request so. The prognosis for this patient is guarded. This is a complex patient with a comprehensive medically necessary appropriate visit carried out in excess of 20 minutes with the patient's questions answered to her satisfaction. Rey Conte MD [facility] # [id number]
[2017-10-01] MEDS: Pantoprazole 40 mg EC Tab PO SCH (06:56)
[2017-10-01 07:00] LABS: BASO # 0.04 K/mm3 (0.0-2.0); BASO % 0.7 % (0.0-3.0); EOS # 0.2 (0.0-0.7); EOS % 3.5 % (1.5-5.0); GRAN # 3.5 (1.4-6.5); GRAN % 61.9 % (50.0-68.0); LYMPH # 1.4 (1.2-3.4); LYMPH % 24.9 % (22.0-35.0); MEAN CELL VOLUME 84.8 fl (80.0-105.0); MEAN CORPUSCULAR HEMOGLOBIN 28.6 pg (25.0-35.0); MEAN CORPUSCULAR HGB CONC 33.8 g/dl (31.0-37.0); MEAN PLATELET VOLUME 10.3 fl (7.0-11.0); MONO # 0.5 (0.1-0.6); RBC 4.54 10^6/uL (3.5-6.1); RED CELL DISTRIBUTION WIDTH 12.7 % (11.5-14.5); WHITE BLOOD COUNT 5.7 10^3/ul (4.5-11.0)
[2017-10-01 07:20] LABS: ALB/GLOB RATIO 1.4 (1.1-1.8); ALBUMIN 3.8 g/dL (3.0-4.8); ALT/SGPT 25 U/L (7-56); AST/SGOT 32 U/L (14-36); BLOOD UREA NITROGEN 15 mg/dL (7-21); CALCIUM 9.4 mg/dL (8.4-10.5); GFR AFRICAN-AMERICAN > 60; GFR NON-AFRICAN AMERICAN > 60
[2017-10-01 08:09] VITALS: BP 138/77; PULSE 64; TEMP 97.8; O2SAT 95
== END 2017-10-01 09:04 | disposition home or self-care (01) | DRG 375 ==
LOC: ED 21:19 → ERH 09-28 02:15 → 3RNO 09-28 03:01
PROVIDERS: ADMIT Student in an Organized Health Care Education/Training Program; ATTEND Student in an Organized Health Care Education/Training Program
DX: C78.6 Secondary malignant neoplasm of retroperitoneum and peritoneum (principal); K56.600 Partial intestinal obstruction, unspecified as to cause; R18.8 Other ascites; K21.9 Gastro-esophageal reflux disease without esophagitis; I34.1 Nonrheumatic mitral (valve) prolapse; K29.70 Gastritis, unspecified, without bleeding; Z85.43 Personal history of malignant neoplasm of ovary; Z92.21 Personal history of antineoplastic chemotherapy; Z90.710 Acquired absence of both cervix and uterus; Z80.3 Family history of malignant neoplasm of breast

== ENCOUNTER 2017-10-05 05:08 | Inpatient (IN) | payer BC ==
[2017-10-05 05:09] VITALS: BMI 26.5
--- NOTE | 2017-10-05 05:19 | ED PDOC ---
Arrival/HPI - General Chief Complaint: Abdominal Pain Time Seen by Provider: 10/05/17 05:11 Historian: Patient - History of Present Illness Narrative History of Present Illness (Text): 10/05/17 05:19 Andra Rios is a 57 year old female, whose past medical history includes Stage 4 ovarian cancer s/p total hysterectomy and chemotherapy, GERD, diverticulosis, and mitral valve prolapse, who presents to the Emergency department complaining of burning diffuse abdominal pain since waking up at 02:00 today. Patient states she had similar symptoms last week, was seen in the Emergency department , and admitted to the hospital for further evaluation. Patient was diagnosed with omental metastasis/peritoneal carcinomatosis and is scheduled for chemotherapy at [facility] tomorrow. Patient states she took Tums at home with no relief. Patient denies any fever, chills, chest pain, shortness of breath, nausea, vomiting, urinary symptoms, headache, dizziness, or any other complaints. Time/Duration: 1-3 hours Symptom Onset: Sudden Symptom Course: Unchanged Activities at Onset: Light Context: Home Past Medical History - Provider Review Nursing Documentation Reviewed: Yes - Infectious Disease Hx of Infectious Diseases: None - Past Medical History Past Medical History: No Previous - Cardiac Hx Cardiac Disorders: Yes Hx Mitral Valve Prolapse: Yes - Pulmonary Hx Respiratory Disorders: Yes - Neurological Hx Neurological Disorder: No - HEENT Hx HEENT Disorder: No - Renal Hx Renal Disorder: No - Endocrine/Metabolic Hx Endocrine Disorders: No - Hematological/Oncological Hx Blood Disorders: No - Integumentary Hx Dermatological Disorder: Yes - Musculoskeletal/Rheumatological Hx Musculoskeletal Disorders: No Hx Falls: No - Gastrointestinal Hx Gastrointestinal Disorders: Yes (ASCITES) Hx Diverticulitis: Yes Hx Gastroesophageal Reflux: Yes - Genitourinary/Gynecological Hx Genitourinary Disorders: Yes Hx Ovarian Cancer: Yes (Satge 4) - Psychiatric Hx Psychophysiologic Disorder: No Hx Substance Use: No - Surgical History Other/Comment: Polyps removed - Anesthesia Hx Anesthesia: Yes Hx Anesthesia Reactions: No Hx Malignant Hyperthermia: No - Suicidal Assessment Feels Threatened In Home Enviroment: No Family/Social History - Physician Review Nursing Documentation Reviewed: Yes Family/Social History: Unknown Family HX Smoking Status: Never Smoked Hx Alcohol Use: No Hx Substance Use: No Hx Substance Use Treatment: No Allergies/Home Meds Allergies/Adverse Reactions: Allergies No Known Allergies Allergy (Verified 09/27/17 21:27) Home Medications: Home Meds Medication Instructions Recorded Confirmed Pantoprazole [Protonix EC Tab] 40 mg PO DAILY 09/27/17 09/27/17 Review of Systems - Physician Review All systems were reviewed & negative as marked: Yes - Review of Systems Constitutional: Normal. absent: Fevers Eyes: Normal ENT: Normal Respiratory: Normal. absent: SOB, Cough Cardiovascular: Normal. absent: Chest Pain Gastrointestinal: Abdominal Pain. absent: Diarrhea, Nausea, Vomiting Genitourinary Female: Normal. absent: Dysuria, Frequency, Hematuria, Urine Output Changes Musculoskeletal: Normal. absent: Back Pain, Neck Pain Skin: Normal. absent: Rash Neurological: Normal. absent: Headache, Dizziness Endocrine: Normal Hemo/Lymphatic: Normal Psychiatric: Normal Physical Exam Vital Signs Reviewed: Yes Vital Signs Pulse Resp BP Pulse Ox 10/05/17 06:13 78 18 174/96 H 99 10/05/17 05:41 83 16 185/90 H 98 Temperature: Afebrile Blood Pressure: Normal Pulse: Regular Respiratory Rate: Normal Appearance: Positive for: Well-Appearing, Non-Toxic, Comfortable Pain Distress: None Mental Status: Positive for: Alert and Oriented X 3 - Systems Exam Head: Present: Atraumatic, Normocephalic Pupils: Present: PERRL Extroacular Muscles: Present: EOMI Conjunctiva: Present: Normal Mouth: Present: Moist Mucous Membranes Neck: Present: Normal Range of Motion Respiratory/Chest: Present: Clear to Auscultation, Good Air Exchange. No: Respiratory Distress, Accessory Muscle Use Cardiovascular: Present: Regular Rate and Rhythm, Normal S1, S2. No: Murmurs Abdomen: Present: Tenderness (Diffuse abdominal tenderness). No: Distention, Peritoneal Signs Back: Present: Normal Inspection Upper Extremity: Present: Normal Inspection. No: Cyanosis, Edema Lower Extremity: Present: Normal Inspection. No: Edema Neurological: Present: GCS=15, CN II-XII Intact, Speech Normal Skin: Present: Warm, Dry, Normal Color. No: Rashes Psychiatric: Present: Alert, Oriented x 3, Normal Insight, Normal Concentration Medical Decision Making ED Course and Treatment: 10/05/17 05:19 Impression: 57 year old female complaining of diffuse abdominal pain since waking up at 02: 00. Plan: -- Labs, lipase -- Urinalysis -- IV fluids -- Morphine -- Zofran -- Reassess and disposition Prior Visits: Notes and results from previous visits were reviewed. On 09/27/2017, pt was seen in the Emergency department for abdominal pain. Pt had a CT Abdomen and Pelvis perfored showed: peritoneal metastases and ascites with partial small bowel obstrucion in the right lower quadrant. Pt was admitted to the hospital for further evaluation. Progress Notes: 10/05/17 07:00 Case endorsed to /pending labs/CT Abd/pelvis/reassess/final disposition - Lab Interpretations Lab Results: 10/05/17 05:28 10/05/17 05:28 Lab Results 10/05/17 05:28: WBC 7.7 D, RBC 4.84, Hgb 14.2, Hct 40.8, MCV 84.3, MCH 29.3, MCHC 34.8, RDW 12.7, Plt Count 230, MPV 10.4 10/05/17 05:28: Sodium 140, Potassium 3.7, Chloride 102, Carbon Dioxide 28, Anion Gap 14, BUN 11, Creatinine 0.9, Est GFR ( Amer) > 60, Est GFR (Non- Af Amer) > 60, Random Glucose 100, Calcium 10.2, Total Bilirubin 0.4, AST 47 H D , ALT 28, Alkaline Phosphatase 98, Total Protein 7.4, Albumin 4.4, Globulin 3.0 , Albumin/Globulin Ratio 1.5, Lipase 141 - RAD Interpretation Radiology Orders: 10/05/17 06:21 ABD & PELVIS IV CONTRAST ONLY [CT] Stat - Medication Orders Current Medication Orders: Sodium Chloride (Sodium Chloride 0.9%) 1,000 mls @ 100 mls/hr IV .Q10H GARCIA Last Admin: 10/05/17 05:41 Dose: 100 mls/hr eMAR Start Stop Document 10/05/17 05:41 SS (Rec: 10/05/17 05:41 SS [id number]) Intravenous Solution Start Date 10/05/17 Start Time 05:41 Discontinued Medications Morphine Sulfate (Morphine) 4 mg IVP STAT STA Stop: 10/05/17 05:23 Last Admin: 10/05/17 05:40 Dose: 4 mg MAR Pain Assessment Document 10/05/17 05:40 SS (Rec: 10/05/17 05:40 SS [id number]) Pain Reassessment Is this a pain reassessment? No Sleep Is patient sleeping during reassessment? No Presence of Pain Presence of Pain Yes Pain Scale Used Pain Scale Used Numeric Location Upper or Lower Lower Pain Location Body Site Abdomen Description Description Constant IVP Administration Document 10/05/17 05:40 SS (Rec: 10/05/17 05:40 SS [id number]) Charges for Administration # of IVP Administrations 1 Morphine Sulfate (Morphine) 4 mg IVP STAT STA Stop: 10/05/17 06:05 Last Admin: 10/05/17 06:09 Dose: 4 mg MAR Pain Assessment Document 10/05/17 06:09 SS (Rec: 10/05/17 06:10 SS [id number]) Pain Reassessment Is this a pain reassessment? Yes Sleep Is patient sleeping during reassessment? No Presence of Pain Presence of Pain Yes Pain Scale Used Pain Scale Used Numeric Location Upper or Lower Lower Pain Location Body Site Abdomen Description Description Constant Intensity of Pain at present 8 IVP Administration Document 10/05/17 06:09 SS (Rec: 10/05/17 06:10 SS [id number]) Charges for Administration # of IVP Administrations 1 Ondansetron HCl (Zofran Inj) 4 mg IVP ONCE ONE Stop: 10/05/17 05:23 Last Admin: 10/05/17 05:41 Dose: 4 mg IVP Administration Document 10/05/17 05:41 SS (Rec: 10/05/17 05:41 SS [id number]) Charges for Administration # of IVP Administrations 1 - Scribe Statement The provider has reviewed the documentation as recorded by the Raf Blair Provider Scribe Attestation: All medical record entries made by the Scribneno were at my direction and personally dictated by me. I have reviewed the chart and agree that the record accurately reflects my personal performance of the history, physical exam, medical decision making, and the department course for this patient. I have also personally directed, reviewed, and agree with the discharge instructions and disposition. Disposition/Present on Arrival - Present on Arrival Any Indicators Present on Arrival: No History of DVT/PE: No History of Uncontrolled Diabetes: No Urinary Catheter: No History of Decub. Ulcer: No History Surgical Site Infection Following: None - Disposition Have Diagnosis and Disposition been Completed?: No Diagnosis: Abdominal pain Disposition Time: :00 Condition: STABLE Forms: Zeto (Georgian)
[2017-10-05] MEDS ORDERED: Morphine 4 mg/ml ISec IVP STA ×3 (05:22→07:13)
[2017-10-05 05:40] LABS: HEMOGLOBIN 14.2 g/dL (12.0-16.0); MEAN CELL VOLUME 84.3 fl (80.0-105.0); MEAN CORPUSCULAR HEMOGLOBIN 29.3 pg (25.0-35.0); MEAN CORPUSCULAR HGB CONC 34.8 g/dl (31.0-37.0); MEAN PLATELET VOLUME 10.4 fl (7.0-11.0); RBC 4.84 10^6/uL (3.5-6.1); RED CELL DISTRIBUTION WIDTH 12.7 % (11.5-14.5); WHITE BLOOD COUNT 7.7 10^3/ul (4.5-11.0)
[2017-10-05] MEDS: Sodium Chloride 0.9% 1,000 ML IV SCH (05:41)
[2017-10-05 06:03] LABS: ALB/GLOB RATIO 1.5 (1.1-1.8); ALBUMIN 4.4 g/dL (3.0-4.8); ALT/SGPT 28 U/L (7-56); AST/SGOT 47 U/L (14-36); BLOOD UREA NITROGEN 11 mg/dL (7-21); CALCIUM 10.2 mg/dL (8.4-10.5); GFR AFRICAN-AMERICAN > 60; GFR NON-AFRICAN AMERICAN > 60; LIPASE 141 U/L (23-300)
[2017-10-05] MEDS ORDERED: Iohexol 350 MG/100 ML VIAL ONE (06:52)
[2017-10-05 07:05] LABS: URINE BILIRUBIN NEGATIVE (NEGATIVE); URINE BLOOD NEGATIVE (NEGATIVE); URINE GLUCOSE (UA) NEGATIVE (NEGATIVE); URINE LEUKOCYTE ESTERASE NEGATIVE Leu/uL (NEGATIVE); URINE PROTEIN NEGATIVE mg/dL (<30 mg/dL); URINE UROBILINOGEN 0.2 E.U./dL (<1 E.U./dL)
[2017-10-05 07:24] LABS: URINE APPEARANCE CLEAR (CLEAR); URINE COLOR YELLOW (YELLOW)
--- NOTE | 2017-10-05 07:26 | ED PDOC ---
Physical Exam Vital Signs Reviewed: Yes Vital Signs Pulse Resp BP Pulse Ox 10/05/17 08:48 84 18 147/80 99 10/05/17 06:13 78 18 174/96 H 99 10/05/17 05:41 83 16 185/90 H 98 Temperature: Afebrile Blood Pressure: Normal Pulse: Regular Respiratory Rate: Normal Appearance: Positive for: Well-Appearing, Non-Toxic, Comfortable Pain Distress: None Mental Status: Positive for: Alert and Oriented X 3 Medical Decision Making ED Course and Treatment: 10/05/17 07:10 Patient endorsed to me by Dr. Mcdaniels. Patient's previous visit has been reviewed. Also, CT performed on 09/27/17 was reviewed by me. Patient is currently more comfortable here in the ER, however is still experiencing diffuse abdominal; pain and distention, with no rebound/guarding. Labs are unremarkable. CT is pending at this time. 10/05/2017 08:30 Abd/Pelvis CT IMPRESSION: No significant change in the appearance of intraperitoneal metastases. There is a small volume of ascites. Dilated small bowel loops in the right lower quadrant consistent with partial obstruction. Dictator: Clinton Baum MD 10/05/17 09:02 Upon re-examination, patient's symptoms have improved, but persists to have abdominal pain. Base on CT readings, case was reviewed with PMD Dr. All June and surgeon Dr. Marie for consult. Patient will be admitted for treatment of pain and small bowel obstruction. - Lab Interpretations Lab Results: 10/05/17 05:28 10/05/17 05:28 Lab Results 10/05/17 06:33: Urine Color Yellow, Urine Appearance Clear, Urine pH 6.0, Ur Specific [place] <= 1.005, Urine Protein Negative, Urine Glucose (UA) Negative, Urine Ketones Negative, Urine Blood Negative, Urine Nitrate Negative, Urine Bilirubin Negative, Urine Urobilinogen 0.2, Ur Leukocyte Esterase Negative 10/05/17 05:28: WBC 7.7 D, RBC 4.84, Hgb 14.2, Hct 40.8, MCV 84.3, MCH 29.3, MCHC 34.8, RDW 12.7, Plt Count 230, MPV 10.4 10/05/17 05:28: Sodium 140, Potassium 3.7, Chloride 102, Carbon Dioxide 28, Anion Gap 14, BUN 11, Creatinine 0.9, Est GFR ( Amer) > 60, Est GFR (Non- Af Amer) > 60, Random Glucose 100, Calcium 10.2, Total Bilirubin 0.4, AST 47 H D , ALT 28, Alkaline Phosphatase 98, Total Protein 7.4, Albumin 4.4, Globulin 3.0 , Albumin/Globulin Ratio 1.5, Lipase 141 - RAD Interpretation Radiology Orders: 10/05/17 06:21 ABD & PELVIS IV CONTRAST ONLY [CT] Stat - Medication Orders Current Medication Orders: Sodium Chloride (Sodium Chloride 0.9%) 1,000 mls @ 100 mls/hr IV .Q10H GARCIA Last Admin: 10/05/17 05:41 Dose: 100 mls/hr eMAR Start Stop Document 10/05/17 05:41 SS (Rec: 10/05/17 05:41 SS [id number]) Intravenous Solution Start Date 10/05/17 Start Time 05:41 Discontinued Medications Morphine Sulfate (Morphine) 4 mg IVP STAT STA Stop: 10/05/17 05:23 Last Admin: 10/05/17 05:40 Dose: 4 mg MAR Pain Assessment Document 10/05/17 05:40 SS (Rec: 10/05/17 05:40 SS [id number]) Pain Reassessment Is this a pain reassessment? No Sleep Is patient sleeping during reassessment? No Presence of Pain Presence of Pain Yes Pain Scale Used Pain Scale Used Numeric Location Upper or Lower Lower Pain Location Body Site Abdomen Description Description Constant IVP Administration Document 10/05/17 05:40 SS (Rec: 10/05/17 05:40 SS [id number]) Charges for Administration # of IVP Administrations 1 Morphine Sulfate (Morphine) 4 mg IVP STAT STA Stop: 10/05/17 06:05 Last Admin: 10/05/17 06:09 Dose: 4 mg MAR Pain Assessment Document 10/05/17 06:09 SS (Rec: 10/05/17 06:10 SS [id number]) Pain Reassessment Is this a pain reassessment? Yes Sleep Is patient sleeping during reassessment? No Presence of Pain Presence of Pain Yes Pain Scale Used Pain Scale Used Numeric Location Upper or Lower Lower Pain Location Body Site Abdomen Description Description Constant Intensity of Pain at present 8 IVP Administration Document 10/05/17 06:09 SS (Rec: 10/05/17 06:10 SS [id number]) Charges for Administration # of IVP Administrations 1 Morphine Sulfate (Morphine) 4 mg IVP STAT STA Stop: 10/05/17 07:14 Last Admin: 10/05/17 07:31 Dose: 4 mg MAR Pain Assessment Document 10/05/17 07:31 MR (Rec: 10/05/17 07:31 MR [id number]) Pain Reassessment Is this a pain reassessment? Yes Sleep Is patient sleeping during reassessment? No Presence of Pain Presence of Pain Yes Pain Scale Used Pain Scale Used Numeric Location Upper or Lower Upper Pain Location Body Site Abdomen Description Description Constant Intensity of Pain at present 6 Pain Behavior Moaning Rubbing Site Facial Grimacing IVP Administration Document 10/05/17 07:31 MR (Rec: 10/05/17 07:31 MR [id number]) Charges for Administration # of IVP Administrations 1 Ondansetron HCl (Zofran Inj) 4 mg IVP ONCE ONE Stop: 10/05/17 05:23 Last Admin: 10/05/17 05:41 Dose: 4 mg IVP Administration Document 10/05/17 05:41 SS (Rec: 10/05/17 05:41 SS [id number]) Charges for Administration # of IVP Administrations 1 - Scribe Statement The provider has reviewed the documentation as recorded by the Raf Kurtz Provider Scribe Attestation: All medical record entries made by the Scribneno were at my direction and personally dictated by me. I have reviewed the chart and agree that the record accurately reflects my personal performance of the history, physical exam, medical decision making, and the department course for this patient. I have also personally directed, reviewed, and agree with the discharge instructions and disposition. Disposition/Present on Arrival - Present on Arrival Any Indicators Present on Arrival: No History of DVT/PE: No History of Uncontrolled Diabetes: No Urinary Catheter: No History of Decub. Ulcer: No History Surgical Site Infection Following: None - Disposition Have Diagnosis and Disposition been Completed?: Yes Diagnosis: Abdominal pain, Bowel obstruction Disposition: HOSPITALIZED Disposition Time: 09:00 Patient Plan: Admission Patient Problems: Current Active Problems Problem Status Onset Abdominal pain Acute Condition: STABLE
--- NOTE | 2017-10-05 08:32 | CT ---
Date of service: 10/05/2017 PROCEDURE: CT Abdomen and Pelvis with contrast HISTORY: abdominal pain COMPARISON: 09/28/2017 CT TECHNIQUE: Contrast dose: 100 cc of Omni 350 Radiation dose: Total exam DLP = 835 mGy-cm. This CT exam was performed using one or more of the following dose reduction techniques: Automated exposure control, adjustment of the mA and/or kV according to patient size, and/or use of iterative reconstruction technique. FINDINGS: LOWER THORAX: Unremarkable. LIVER: Unremarkable. No gross lesion or ductal dilatation. GALLBLADDER AND BILE DUCTS: Unremarkable. PANCREAS: Unremarkable. No gross lesion or ductal dilatation. SPLEEN: Unremarkable. ADRENALS: Unremarkable. No mass. KIDNEYS AND URETERS: Unremarkable. No hydronephrosis. No solid mass. VASCULATURE: Unremarkable. No aortic aneurysm. BOWEL: Dilated loops of small bowel are again seen in the right lower quadrant consistent with partial obstruction. APPENDIX: Normal appendix. PERITONEUM: There is no change in the appearance of intraperitoneal metastases. There is a soft tissue mass surrounding the liver. Masses are also seen anterior to the spleen and within the omentum. There is a small volume of ascites. There is a 2.7 x 4 cm mass in the mesenteric at the right lower quadrant. LYMPH NODES: Unremarkable. No enlarged lymph nodes. BLADDER: Unremarkable. REPRODUCTIVE: Unremarkable. BONES: No acute fracture. OTHER FINDINGS: None. IMPRESSION: No significant change in the appearance of intraperitoneal metastases. There is a small volume of ascites. Dilated small bowel loops in the right lower quadrant consistent with partial obstruction.
[2017-10-05] MEDS ORDERED: Morphine 4 mg/ml ISec IVP PRN (09:10)
--- NOTE | 2017-10-05 09:50 | CP.PCM.CON ---
History of Present Illness - History of Present Illness History of Present Illness: Surgery Consult Note for Dr. Marie 57 y o female PMhx stage IV ovarian carcinoma (diagnosed in 04/2016) s/p hysterectomy, b/l salpingo-oophorectomy, cholecystectomy (07/2016), 7 cycles of chemotherapy (last tx 12/2016), diverticulitis/colitis (), who presents with abdominal pain x 1 day. Pt was recently admitted from 09/28-10/01/17 for similar symptoms, and was found on CT abd pelvis at time to have peritoneal mets, partial SBO, and small ascites. Patient states that she last ate at 5:30 pm yesterday evening, has only been able to tolerate drinking water and tea since. Reports BM last evening soft in consistency, but states that not too much came out. Pt has been taking protonix since last week and also occasional Tums which has helped a little with symptoms. Localizes pain to RLQ, but states that with palpation, the pain shoots diffusely through her abdomen. Rates pain currently 6/10 due to receiving morphine, was 10/10 on presentation to ED. Admits to nausea but denies any episodes of vomiting since symptoms started. Patient states that she was supposed to get a cardiac echo done this afternoon at [facility] [place] prior to being started on Doxil for chemotherapy tomorrow as per her oncologist. Procedures Rn oncologist Dr. Soraida Murrieta ([facility]) PMhx: as described above PSurgHx: as described above Allergies: NKDA Meds: Protonix Fam hx: Mom passed from metastatic breast ca, cousin on father's side had ovarian ca, mom's sister had breast ca Soc hx: Denies smoking, alcohol, or drug use 12 point ROS as per HPI, otherwise negative. In ED, pt received Morphine for pain control and Zofran. CT abd pelvis demonstrated no significant change in appearance of intraperitoneal mets, and showed small volume of ascites. Pt afebrile and hemodynamically stable at this time. Review of Systems - Constitutional Constitutional: As Per HPI, Anorexia, Fatigue - Cardiovascular Cardiovascular: absent: As Per HPI, Acrocyanosis, Chest Pain, Chest Pain at Rest , Chest Pain with Activity, Claudication, Diaphoresis, Dyspnea, Dyspnea on Exertion, Edema, Irregular Heart Rhythm, Pain Radiating to Arm/Neck/Jaw, Leg Edema, Leg Ulcers, Lightheadedness, Orthopnea, Palpitations, Paroxysmal Nocturnal Dyspnea, Pedal Edema, Radiating Pain, Rapid Heart Rate, Slow Heart Rate, Syncope, Other - Respiratory Respiratory: absent: As Per HPI, Cough, Dyspnea, Hemoptysis, Dyspnea on Exertion , Wheezing, Snoring, Stridor, Pain on Inspiration, Chest Congestion, Excessive Mucous Production, Change in Mucous Color, Pain with Coughing, Other - Gastrointestinal Gastrointestinal: As Per HPI, Abdominal Pain, Bloating, Change in Bowel Habits, Constipation, Nausea - Genitourinary Genitourinary: absent: As Per HPI, Change in Urinary Stream, Difficulty Urinating, Dysuria, Flank Pain, Hematuria, Pyuria, Nocturia, Urinary Incontinence, Urinary Frequency, Urinary Hesitance, Urinary Urgency, Voiding Freq/Small Amts, Freq UTI, Hx Renal/Bladder Calculi, Hx /Renal Surgery, Bladder Distension, Other Past Patient History - Infectious Disease Hx of Infectious Diseases: None - Past Medical History & Family History Past Medical History?: No - Past Social History Smoking Status: Never Smoked - CARDIAC Hx Cardiac Disorders: Yes Hx Mitral Valve Prolapse: Yes - PULMONARY Hx Respiratory Disorders: Yes - NEUROLOGICAL Hx Neurological Disorder: No - HEENT Hx HEENT Problems: No - RENAL Hx Chronic Kidney Disease: No - ENDOCRINE/METABOLIC Hx Endocrine Disorders: No - HEMATOLOGICAL/ONCOLOGICAL Hx Blood Disorders: No - INTEGUMENTARY Hx Dermatological Problems: Yes - MUSCULOSKELETAL/RHEUMATOLOGICAL Hx Musculoskeletal Disorders: No Hx Falls: No - GASTROINTESTINAL Hx Gastrointestinal Disorders: Yes (ASCITES) Hx Diverticulitis: Yes Hx Gastroesophageal Reflux: Yes - GENITOURINARY/GYNECOLOGICAL Hx Genitourinary Disorders: Yes Hx Ovarian Cancer: Yes (Satge 4) - PSYCHIATRIC Hx Psychophysiologic Disorder: No Hx Substance Use: No - SURGICAL HISTORY Other/Comment: Polyps removed - ANESTHESIA Hx Anesthesia: Yes Hx Anesthesia Reactions: No Hx Malignant Hyperthermia: No Meds Allergies/Adverse Reactions: Allergies Allergy/AdvReac Type Severity Reaction Status Date / Time No Known Allergies Allergy Verified 09/27/17 21:27 - Medications Medications: Current Medications Sodium Chloride (Sodium Chloride 0.9%) 1,000 mls @ 100 mls/hr IV .Q10H GARCIA Last Admin: 10/05/17 05:41 Dose: 100 mls/hr Morphine Sulfate (Morphine) 4 mg IVP Q4 PRN PRN Reason: Pain, severe (8-10) Ondansetron HCl (Zofran Inj) 4 mg IVP Q6H PRN PRN Reason: Nausea/Vomiting Pantoprazole Sodium (Protonix Inj) 40 mg IVP DAILY GARCIA Physical Exam - Constitutional Appears: Non-toxic, No Acute Distress - Head Exam Head Exam: ATRAUMATIC, NORMAL INSPECTION - Eye Exam Eye Exam: EOMI, Normal appearance, PERRL - ENT Exam ENT Exam: Mucous Membranes Moist - Neck Exam Neck exam: Positive for: Full Rom, Normal Inspection - Respiratory Exam Respiratory Exam: Clear to Auscultation Bilateral, NORMAL BREATHING PATTERN - Cardiovascular Exam Cardiovascular Exam: REGULAR RHYTHM, +S1, +S2 - GI/Abdominal Exam GI & Abdominal Exam: Distended, Hypoactive Bowel Sounds, Tenderness Additional comments: Diffuse tenderness to palpation in all 4 quadrants, no rebound tenderness - Extremities Exam Extremities exam: Positive for: full ROM, normal capillary refill, normal inspection, pedal pulses present - Back Exam Back exam: FULL ROM, NORMAL INSPECTION - Neurological Exam Neurological exam: Alert, CN II-XII Intact, Oriented x3 - Skin Skin Exam: Dry, Intact, Normal Color, Warm Results - Vital Signs Recent Vital Signs: Last Vital Signs Temp Pulse 84 10/05/17 08:48 Resp 18 10/05/17 08:48 BP 147/80 10/05/17 08:48 Pulse Ox 99 10/05/17 08:48 - Labs Result Diagrams: 10/05/17 05:28 10/05/17 05:28 Labs: Laboratory Results - last 24 hr 10/05/17 10/05/17 10/05/17 05:28 05:28 06:33 WBC 7.7 D RBC 4.84 Hgb 14.2 Hct 40.8 MCV 84.3 MCH 29.3 MCHC 34.8 RDW 12.7 Plt Count 230 MPV 10.4 Sodium 140 Potassium 3.7 Chloride 102 Carbon Dioxide 28 Anion Gap 14 BUN 11 Creatinine 0.9 Est GFR ( Amer) > 60 Est GFR (Non-Af Amer) > 60 Random Glucose 100 Calcium 10.2 Total Bilirubin 0.4 AST 47 H D ALT 28 Alkaline Phosphatase 98 Total Protein 7.4 Albumin 4.4 Globulin 3.0 Albumin/Globulin Ratio 1.5 Lipase 141 Urine Color Yellow Urine Appearance Clear Urine pH 6.0 Ur Specific [place] <= 1.005 Urine Protein Negative Urine Glucose (UA) Negative Urine Ketones Negative Urine Blood Negative Urine Nitrate Negative Urine Bilirubin Negative Urine Urobilinogen 0.2 Ur Leukocyte Esterase Negative Assessment & Plan - Assessment and Plan (Free Text) Assessment: 57 y o female PMhx stage IV ovarian carcinoma (diagnosed in 04/2016) s/p hysterectomy, b/l salpingo-oophorectomy, cholecystectomy (07/2016), 7 cycles of chemotherapy (last tx 12/2016), diverticulitis/colitis (), who presents with abdominal pain and nausea x 1 day. Found to have peritoneal mets, partial SBO, small ascites. Plan: -No plan for acute surgical intervention at this time -CT abd pelvis 09/27/17 demonstrated new discrete peritoneal mets, anterior to spleen, largest lesion 1.6 x 3.3 cm, lesion adjacent to R lobe of liver. Largest lesion seen btwn abd wall and R lobe of liver, measuring 1.5 cm thickness and 10 cm in length -Repeat CT today demonstrates no significant change in appearance of intraperitoneal mets, small volume of ascites, partial SBO -Prior CT in 02/2017 did not demonstrate above findings -Pain control -NPO, conservative management -Dulcolax suppository x1, monitor bowel function -Consider NG tube placement if pt clinically worsens or has episodes of vomiting -Further recommendations as per Dr. Frank Fitzgerald, DO PGY-1
--- NOTE | 2017-10-05 11:29 | HP ---
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 intake. The patient states that she was doing well since her recent discharge and was tolerating p.o. intake without difficulty however yesterday she developed increasing abdominal pain and inability to tolerate p.o. intake along with mild abdominal distention. Given her recent hospitalization she was concerned for recurrent obstruction and presented to the ED for evaluation. Upon arrival to the ED she was found to be afebrile and hemodynamically stable but in moderate distress secondary to abdominal pain. A CT of the abdomen demonstrated recurrent small bowel obstruction. The patient was started on IV fluids, analgesic and antiemetic medications and admitted to the general medical wen for continued management of small bowel obstruction. PAST MEDICAL HISTORY: As per HPI, also GERD and mitral valve prolapse. PAST SURGICAL HISTORY: As per HPI, also , cholecystectomy and right hemicolectomy with ileocolonic anastomosis. ALLERGIES: NKDA. MEDICATIONS: Protonix 40 mg p.o. daily, Colace 100 mg p.o. b.i.d., Mylanta p.r.n., and Tylenol 500 mg p.o. every 6 hours p.r.n. pain. FAMILY HISTORY: Significant for breast cancer in her mother, ovarian cancer in her paternal cousins and COPD and CAD in her father. SOCIAL HISTORY: The patient has no history of toxic habits. She is and lives with her . REVIEW OF SYSTEMS: A 12-point review of systems is negative except as per HPI. PHYSICAL EXAMINATION: VITAL SIGNS: Temperature 98.6, pulse 84, blood pressure 147/80, respiratory rate 18, oxygen saturation 99% on room air. GENERAL: Chronically ill-appearing woman, lying in bed in moderate distress secondary to abdominal pain. HEENT: PERRL. EOMI. No scleral icterus. No conjunctival pallor. NECK: No JVD. CARDIOVASCULAR: Regular rate and rhythm. Normal S1 and S2. LUNGS: Clear to auscultation. ABDOMEN: Hypoactive bowel sounds, soft, mildly distended and tender to palpation to lower abdomen with voluntary guarding. EXTREMITIES: No edema. NEUROLOGIC: Awake, alert and oriented x 3. No focal motor deficits. LABORATORY DATA: WBC 7.7, hemoglobin 14, hematocrit 40, platelets 230. Sodium 130, potassium 3.7, chloride 102, bicarb 28, BUN 11, creatinine 0.9, glucose 100. IMAGING STUDIES: CT of the abdomen and pelvis with IV contrast demonstrated small volume ascites with dilated small loops of bowel in the right lower quadrant consistent with partial obstruction and no change in the appearance of intraperitoneal metastasis. 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 intake and who was admitted for management of partial small bowel obstruction. PLAN: 1. Small bowel obstruction (partial). CT imaging reviewed. The patient will remain n.p.o. We will continue IV fluid hydration, Morphine 4 mg IV every 4 hours p.r.n. pain and Zofran 4 mg IV every [address] Marie of General Surgery has been consulted for surgical evaluation although it is doubtful there is a need for urgent surgical intervention. 2. Stage Jay adenocarcinoma of Mullerian tract origin. The patient will resume followup with Dr. Soraida Ni at [facility]. 3. GERD. Resume Protonix 40 mg IV daily. 4. Prophylaxis. Continue Protonix for GI prophylaxis. DVT prophylaxis not indicates as the patient is ambulatory. CODE STATUS: Full code. All June MD MTDD
[2017-10-06] MEDS: Sodium Chloride 0.9% 1,000 ML IV SCH ×3 (01:38→21:30)
[2017-10-06 06:24] LABS: MEAN CELL VOLUME 87.3 fl (80.0-105.0); MEAN CORPUSCULAR HEMOGLOBIN 28.1 pg (25.0-35.0); MEAN CORPUSCULAR HGB CONC 32.1 g/dl (31.0-37.0); MEAN PLATELET VOLUME 10.4 fl (7.0-11.0); RBC 4.17 10^6/uL (3.5-6.1); RED CELL DISTRIBUTION WIDTH 13.1 % (11.5-14.5); WHITE BLOOD COUNT 4.9 10^3/ul (4.5-11.0)
[2017-10-06 07:24] LABS: ALB/GLOB RATIO 1.3 (1.1-1.8); ALBUMIN 3.2 g/dL (3.0-4.8); ALT/SGPT 35 U/L (7-56); AST/SGOT 38 U/L (14-36); BLOOD UREA NITROGEN 9 mg/dL (7-21); CALCIUM 8.7 mg/dL (8.4-10.5); GFR AFRICAN-AMERICAN > 60; GFR NON-AFRICAN AMERICAN > 60
[2017-10-06 07:34] LABS: HEMOGLOBIN 11.7 g/dL (12.0-16.0)
--- NOTE | 2017-10-06 07:57 | CP.PCM.PN ---
Subjective - Date & Time of Evaluation Date of Evaluation: 10/06/17 Time of Evaluation: 07:15 - Subjective Subjective: Surgery Progress Note for Dr. Marie Pt seen and examined at bedside. States her abdominal pain is much improved. Pt NPO. Reports 4 BMs yesterday with soft stool, small in amt but denies diarrhea. No acute events reported overnight. Objective - Vital Signs/Intake and Output Vital Signs (last 24 hours): Temp Pulse Resp BP Pulse Ox 98.7 F 71 18 129/80 95 10/05/17 16:12 10/05/17 16:12 10/05/17 16:12 10/05/17 16:12 10/05/17 16:12 Intake and Output: 10/06/17 10/06/17 06:59 18:59 Intake Total 1200 Balance 1200 - Medications Medications: Current Medications Sodium Chloride (Sodium Chloride 0.9%) 1,000 mls @ 100 mls/hr IV .Q10H [facility] Last Admin: 10/06/17 01:38 Dose: Not Given Morphine Sulfate (Morphine) 4 mg IVP Q4 PRN PRN Reason: Pain, severe (8-10) Last Admin: 10/05/17 13:55 Dose: 4 mg Ondansetron HCl (Zofran Inj) 4 mg IVP Q6H PRN PRN Reason: Nausea/Vomiting Pantoprazole Sodium (Protonix Inj) 40 mg IVP DAILY [facility] Last Admin: 10/05/17 11:08 Dose: 40 mg - Labs Labs: 10/06/17 05:30 10/06/17 05:30 - Constitutional Appears: Non-toxic, No Acute Distress - Head Exam Head Exam: ATRAUMATIC, NORMAL INSPECTION - Eye Exam Eye Exam: EOMI, Normal appearance, PERRL - ENT Exam ENT Exam: Mucous Membranes Moist - Neck Exam Neck Exam: Full ROM, Meningismus - Respiratory Exam Respiratory Exam: Clear to Ausculation Bilateral, NORMAL BREATHING PATTERN - Cardiovascular Exam Cardiovascular Exam: REGULAR RHYTHM, +S1, +S2 - GI/Abdominal Exam Additional comments: Mild distension, hypoactive bowel sounds x4, mild tenderness to palpation in all 4 quadrants, no rebound tenderness - Extremities Exam Extremities Exam: Full ROM, Normal Capillary Refill, Normal Inspection - Back Exam Back Exam: Full ROM, NORMAL INSPECTION - Neurological Exam Neurological Exam: Alert, Awake, CN II-XII Intact, Oriented x3 - Skin Skin Exam: Dry, Intact, Normal Color, Warm Assessment and Plan - Assessment and Plan (Free Text) Assessment: 57 y o female PMhx stage IV ovarian carcinoma (diagnosed in 04/2016) s/p hysterectomy, b/l salpingo-oophorectomy, cholecystectomy (07/2016), 7 cycles of chemotherapy (last tx 12/2016), diverticulitis/colitis (), who presented to the ED with abdominal pain and nausea x 1 day. Found to have peritoneal mets, partial SBO, small ascites. Plan: -No plan for acute surgical intervention at this time -CT abd pelvis 09/27/17 demonstrated new discrete peritoneal mets, anterior to spleen, largest lesion 1.6 x 3.3 cm, lesion adjacent to R lobe of liver. Largest lesion seen btwn abd wall and R lobe of liver, measuring 1.5 cm thickness and 10 cm in length -Repeat CT 10/05/17 demonstrated no significant change in appearance of intraperitoneal mets, small volume of ascites, partial SBO -Prior CT in 02/2017 did not demonstrate above findings -Pain well controlled -NPO, conservative management, will advance diet as tolerated -Dulcolax suppository x1 yesterday, pt reported BM x4 with soft stool -Further recommendations as per Dr. Marie
--- NOTE | 2017-10-06 10:12 | PN ---
Copied To: Rodolfo June MD Attending MD: Rodolfo June MD DATE: 10/06/2017 SUBJECTIVE: She has no complaints this morning. Her pain is improved. There have been no acute events overnight. PHYSICAL EXAMINATION: VITAL SIGNS: Temperature of 97.8, pulse rate of 67, blood pressure 139/81, respiratory rate of 20 with an O2 saturation of 100% on room air. HEENT: Negative. NECK: Unremarkable. There are no bruits or adenopathy. LUNGS: Clear bilaterally. HEART: With a regular rate and rhythm. ABDOMEN: Soft. It is nontender. Bowel sounds are normoactive. EXTREMITIES: Show no deformities or edema. NEUROLOGICAL: No focal motor deficits. LABORATORY DATA: CBC this morning is normal with the exception of a hemoglobin of 11.7. Chemistry this morning is also normal. AST of 38, which is down from 47 from yesterday. We will continue current treatment. Start the patient on a liquid diet. IMPRESSION: 1. Small bowel obstruction. 2. Status post total abdominal hysterectomy for gynecologic malignancy. Rodolfo June MD
--- NOTE | 2017-10-06 12:29 | CP.PCM.CON ---
History of Present Illness - History of Present Illness History of Present Illness: Akila Harry, PGY2, Heme-Onc Consult Note for Dr Manning: CC: lower abdominal pain 57 year old female with PMH stage IV serous ovarian carcinoma dx 04/2016 s/p hysterectomy, oophorectomy, cholecystectomy (07/2016), 6 cycles of chemotherapy ( carboplatin/paclitaxel) with peritoneal mets, presents for abdominal pain for past 1 day [facility]. Patient recently admitted on 09/28/17 for similar complaints, found to have partial SBO, peritoneal mets and small ascites. Patient reports mild nausea, however, no vomiting, fevers, chills, urinary complaints, leg swelling, headache, confusion. On d/c from [facility] last admission, patient was scheduled to receive chemotherapy with carboplatin and Doxil today with Dr Ni at [facility]. Oncology was consulted to determine if patient can get those treatments at [facility]. Since admission, patient states that she is feeling better, states that she only has mild lower abdominal discomfort now, passing gas and has had 2-3 soft, nonbloody BMs this AM. 12 point ROS obtained and neg, except as per HPI. PMD: stage IV ovarian cancer (dx 04/2016) s/p hysterectomy, oophorectomy, cholecystectomy; diverticulosis, SBO PSH: hysterectomy, oophorectomy, cholecystectomy (07/2016) NKA FH: mother, breast cancer, mets to bone Aunt, breast cancer Cousin, ovarian cancer, SH: denies tobacco use. Occasional drinks wine. Denies drug use. Lives with . walks by self. Review of Systems - Review of Systems All systems: reviewed and no additional remarkable complaints except Review of Systems: as per hpi Past Patient History - Infectious Disease Hx of Infectious Diseases: None - Past Medical History & Family History Past Medical History?: No - Past Social History Smoking Status: Never Smoked - CARDIAC Hx Cardiac Disorders: Yes Hx Mitral Valve Prolapse: Yes - PULMONARY Hx Respiratory Disorders: Yes - NEUROLOGICAL Hx Neurological Disorder: No - HEENT Hx HEENT Problems: No - RENAL Hx Chronic Kidney Disease: No - ENDOCRINE/METABOLIC Hx Endocrine Disorders: No - HEMATOLOGICAL/ONCOLOGICAL Hx Blood Disorders: Yes Hx Cancer: Yes (ABDOMINAL CARCINOMATOSIS,OVARIAN CA STAGE 4 METS TO SPLEEN, LIVER 10-05-17) Hx Chemotherapy: Yes (7 CYCLES LAST WAS WILL START AGAIN ON 09-27-17) - INTEGUMENTARY Hx Dermatological Problems: Yes - MUSCULOSKELETAL/RHEUMATOLOGICAL Hx Musculoskeletal Disorders: No Hx Falls: No - GASTROINTESTINAL Hx Gastrointestinal Disorders: Yes (ASCITES) Hx Diverticulitis: Yes Hx Gastroesophageal Reflux: Yes - GENITOURINARY/GYNECOLOGICAL Hx Genitourinary Disorders: Yes (OVARIAN CA STAGE 4,HYSTERECTOMY,BILATERAL SALPHINGO OOPHORECTOMY) Other/Comment: C SECTION - PSYCHIATRIC Hx Psychophysiologic Disorder: No - SURGICAL HISTORY Hx Surgeries: Yes (TAL. SALPHINGO OOPHORECTOMY,TAHBSO,r hemicolectomy) Hx Cholecystectomy: Yes Other/Comment: Polyps removed,picc to right upper arm in and out. - ANESTHESIA Hx Anesthesia: Yes Hx Anesthesia Reactions: No Hx Malignant Hyperthermia: No Meds Allergies/Adverse Reactions: Allergies Allergy/AdvReac Type Severity Reaction Status Date / Time No Known Allergies Allergy Verified 10/05/17 12:06 - Medications Medications: Current Medications Sodium Chloride (Sodium Chloride 0.9%) 1,000 mls @ 100 mls/hr IV .Q10H [facility] Last Admin: 10/06/17 09:14 Dose: 100 mls/hr Morphine Sulfate (Morphine) 4 mg IVP Q4 PRN PRN Reason: Pain, severe (8-10) Last Admin: 10/05/17 13:55 Dose: 4 mg Ondansetron HCl (Zofran Inj) 4 mg IVP Q6H PRN PRN Reason: Nausea/Vomiting Pantoprazole Sodium (Protonix Inj) [address] [facility] Last Admin: 10/06/17 09:14 Dose: 40 mg Physical Exam - Constitutional Appears: Non-toxic, No Acute Distress - Head Exam Head Exam: ATRAUMATIC, NORMOCEPHALIC - Eye Exam Eye Exam: EOMI, PERRL. absent: Conjunctival injection, Nystagmus, Scleral icterus Pupil Exam: NORMAL ACCOMODATION, PERRL. absent: Fixed, Irregular, Miosis, Unequal - ENT Exam ENT Exam: Mucous Membranes Moist - Neck Exam Neck exam: Positive for: Full Rom - Respiratory Exam Respiratory Exam: Clear to Auscultation Bilateral, NORMAL BREATHING PATTERN. absent: Accessory Muscle Use, Rhonchi, Wheezes, Stridor - Cardiovascular Exam Cardiovascular Exam: RRR, +S1, +S2. absent: Systolic Murmur - GI/Abdominal Exam GI & Abdominal Exam: Normal Bowel Sounds, Soft, Tenderness (TTP in lower abdomen ). absent: Distended, Firm, Guarding, Mass, Organomegaly - Extremities Exam Extremities exam: Positive for: normal inspection. Negative for: calf tenderness, pedal edema - Back Exam Back exam: NORMAL INSPECTION - Neurological Exam Neurological exam: Alert, Oriented x3 - Psychiatric Exam Psychiatric exam: Normal Affect, Normal Mood - Skin Skin Exam: Dry, Normal Color, Warm Results - Vital Signs Recent Vital Signs: Last Vital Signs Temp 97.8 F 10/06/17 08:30 Pulse 67 10/06/17 08:30 Resp 20 10/06/17 08:30 BP 139/81 10/06/17 08:30 Pulse Ox 100 10/06/17 08:30 - Labs Result Diagrams: 10/06/17 05:30 10/06/17 05:30 Labs: Laboratory Results - last 24 hr 10/06/17 10/06/17 05:30 05:30 WBC 4.9 D RBC 4.17 Hgb 11.7 L D Hct 36.4 MCV 87.3 D MCH 28.1 MCHC 32.1 RDW 13.1 Plt Count 215 MPV 10.4 Sodium 141 Potassium 4.3 Chloride 108 H Carbon Dioxide 28 Anion Gap 10 BUN 9 Creatinine 0.9 Est GFR ( Amer) > 60 Est GFR (Non-Af Amer) > 60 Random Glucose 81 Calcium 8.7 Total Bilirubin 0.3 AST 38 H ALT 35 Alkaline Phosphatase 78 Total Protein 5.7 L Albumin 3.2 Globulin 2.5 Albumin/Globulin Ratio 1.3 Assessment & Plan - Assessment and Plan (Free Text) Assessment: 57 year old female with PMH stage IV serous ovarian carcinoma dx 04/2016 s/p hysterectomy, oophorectomy, cholecystectomy (07/2016), 6 cycles of chemotherapy ( carboplatin/paclitaxel) with peritoneal mets, presents for abdominal pain, found to have partial SBO. Oncology consulted for management of ovarian cancer with mets, possible chemotherapy sessions: - Recommend tissue diagnosis prior to beginning chemotherapy - Dr Manning recommends starting patient on single agent chemotherapy Doxil. Patient is more prone to allergic reaction with Carboplatin, given its patient' s 7th session. - Discussed case with patient's Oncologist Dr Soraida Ni's SE[employer]ER BUILDER, Tashia Mckinley at [facility]. States that patient absolutely does not want chemo at [facility], wants to go back to [facility] for chemotherapy session. Session arranged for next Friday 10/13, will do carboplatin and Doxil. Requests getting echocardiogram and 24 hr creatinine clearance prior. - Surgery recs appreciates. no acute surgical intervention - Started liquid diet this afternoon for lunch. - CT abd pelvis 09/27/17: new discrete peritoneal mets. anterior to spleen, largest lesion 1.6x3.3 cm, lesion adjacent to right lobe of liver. Largest lesion seen btw abdominal wall and right lobe of liver, measuring 1.5 cm thicknes and 10 cmin length. - Repeat CT 10/05/17 demonstrated no significant change in appearance of intraperitoneal mets, small volume of ascites, partial SBO - pain control Case discussed with Dr Manning.
[2017-10-07 07:19] LABS: HEMOGLOBIN 12.1 g/dL (12.0-16.0); MEAN CELL VOLUME 85.2 fl (80.0-105.0); MEAN CORPUSCULAR HEMOGLOBIN 28.4 pg (25.0-35.0); MEAN CORPUSCULAR HGB CONC 33.3 g/dl (31.0-37.0); MEAN PLATELET VOLUME 10.3 fl (7.0-11.0); RBC 4.26 10^6/uL (3.5-6.1); RED CELL DISTRIBUTION WIDTH 12.5 % (11.5-14.5); WHITE BLOOD COUNT 5.7 10^3/ul (4.5-11.0)
[2017-10-07 07:38] LABS: ALB/GLOB RATIO 1.3 (1.1-1.8); ALBUMIN 3.5 g/dL (3.0-4.8); ALT/SGPT 30 U/L (7-56); AST/SGOT 35 U/L (14-36); BLOOD UREA NITROGEN 6 mg/dL (7-21); CALCIUM 9.1 mg/dL (8.4-10.5); GFR AFRICAN-AMERICAN > 60; GFR NON-AFRICAN AMERICAN > 60
--- NOTE | 2017-10-07 10:15 | PN ---
SUBJECTIVE: The patient was seen and examined at bedside on the general medical wen. No acute events overnight. She remains afebrile and hemodynamically stable. She is tolerating p.o. intake and had a small bowel movement. She furthermore reports significant improvement in her presenting symptoms and otherwise offers no complaints. OBJECTIVE: VITAL SIGNS: Temperature 97.5, pulse 71, blood pressure 148/89, respiratory rate 20, oxygen saturation 97% on room air. GENERAL: Chronically ill appearing woman lying in bed, in no apparent distress. HEENT: PERRL. EOMI. No scleral icterus. No conjunctival pallor. NECK: No JVD. LUNGS: Clear to auscultation. CARDIOVASCULAR: Regular rate and rhythm. Normal S1 and S2. ABDOMEN: Normoactive bowel sounds, soft, nondistended, mild tenderness to palpation to lower abdomen with voluntary guarding. EXTREMITIES: No edema. NEUROLOGIC: Awake, alert and oriented x 3. No focal motor deficits. LABORATORY DATA: CBC reviewed and unremarkable. CMP reviewed and unremarkable. 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 intake and was admitted for management of partial small bowel obstruction. PLAN: 1. Small bowel obstruction (partial). The patient is demonstrating clinical improvement. Input from Dr. Marie and the surgical team appreciated and no need for urgent surgical intervention. Continue to advance diet as tolerated. Continue with Morphine and Zofran as needed. 2. Stage Jay adenocarcinoma of Mullerian tract origin. The patient is scheduled to follow with Dr. Soraida Ni at [facility]. We will order an echocardiogram prior to initiation of chemotherapy. 3. GERD. Continue Protonix 40 mg IV daily. 4. Prophylaxis. Continue Protonix for GI prophylaxis. DVT prophylaxis is not indicated as the patient is ambulatory. CODE STATUS: Full code. All June MD [facility] # [id number] MTDIron
--- NOTE | 2017-10-07 12:20 | CARD ---
APPROVED REPORT Date of service: 10/07/2017 EXAM: Two-dimensional and M-mode echocardiogram with Doppler and color Doppler. INDICATION LVFX/ EVALUATE LVFX BEFORE STARTING DOXIL 2D DIMENSIONS Left Atrium (2D)4.1 (1.6-4.0cm)IVSd0.8 (0.7-1.1cm) LVDd4.4 (3.9-5.9cm)PWd0.9 (0.7-1.1cm) LVDs3.0 (2.5-4.0cm)FS (%) 32.2 % LVEF (%)60.7 (>50%) M-Mode DIMENSIONS Aortic Root2.80 (2.2-3.7cm)Aortic Cusp Exc.1.50 (1.5-2.0cm) Aortic Valve AoV Peak Lpedydao942.0cm/Jackie Peak GR.11mmHg Mitral Valve MV E Yangqjiz33.6cm/sMV A Xyonfcdq76.8cm/sE/A ratio0.8 TDI Lateral E' Peak V10.80cm/sMedial E' Peak V7.21cm/sE/Lateral E'6.4 E/Medial E'9.7 Pulmonary Valve PV Peak Cgcdtgqt66.6cm/sPV Peak Grad.2mmHg Tricuspid Valve TR Peak Bmyfqsyt999md/sRAP [id number] Peak Gr.31mmHg [id number] LEFT VENTRICLE The left ventricle is normal size. There is normal left ventricular wall thickness. The left ventricular function is normal. The left ventricular ejection fraction is within the normal range. There is normal LV segmental wall motion. Transmitral Doppler flow pattern is Grade I-abnormal relaxation pattern. RIGHT VENTRICLE The right ventricle is normal size. There is normal right ventricular wall thickness. The right ventricular systolic function is normal. ATRIA The left atrium size is normal. The right atrium size is normal. AORTIC VALVE The aortic valve is normal in structure. No aortic regurgitation is present. There is no aortic valvular stenosis. MITRAL VALVE The mitral valve is normal in structure. Mitral regurgitation is trace. There is no mitral valve stenosis. TRICUSPID VALVE The tricuspid valve is normal in structure. There is mild pulmonary hypertension. PULMONIC VALVE The pulmonary valve is normal in structure. There is no pulmonic valvular regurgitation. GREAT VESSELS The aortic root is normal in size. The IVC is normal in size and collapses >50% with inspiration. PERICARDIAL EFFUSION There is a trace loculated anterior pericardial effusion. <Conclusion> The left ventricle is normal size. There is normal left ventricular wall thickness. The left ventricular function is normal. The left ventricular ejection fraction is within the normal range. There is normal LV segmental wall motion. Transmitral Doppler flow pattern is Grade I-abnormal relaxation pattern. There is mild pulmonary hypertension.
[2017-10-07 17:20] VITALS: RESP 18
[2017-10-08] MEDS ORDERED: Pantoprazole 40 mg EC Tab PO SCH (06:00)
[2017-10-08 06:43] VITALS: BP 140/89; PULSE 70; TEMP 97.6; O2SAT 98
[2017-10-08 07:07] LABS: MEAN CELL VOLUME 85.1 fl (80.0-105.0); MEAN CORPUSCULAR HEMOGLOBIN 28.6 pg (25.0-35.0); MEAN CORPUSCULAR HGB CONC 33.6 g/dl (31.0-37.0); MEAN PLATELET VOLUME 10.3 fl (7.0-11.0); RBC 4.55 10^6/uL (3.5-6.1); RED CELL DISTRIBUTION WIDTH 12.7 % (11.5-14.5); WHITE BLOOD COUNT 6.2 10^3/ul (4.5-11.0)
[2017-10-08 07:26] LABS: ALB/GLOB RATIO 1.5 (1.1-1.8); ALBUMIN 3.9 g/dL (3.0-4.8); ALT/SGPT 26 U/L (7-56); AST/SGOT 35 U/L (14-36); BLOOD UREA NITROGEN 7 mg/dL (7-21); CALCIUM 9.6 mg/dL (8.4-10.5); GFR AFRICAN-AMERICAN > 60; GFR NON-AFRICAN AMERICAN > 60
--- NOTE | 2017-10-08 21:01 | PN ---
Copied To: Hermilo Manning MD Attending MD: Hermilo Manning MD DATE: 10/07/2017 LOCATION: The patient is in room 366, bed 1. PROBLEMS: This is a 57-year-old female with a diagnoses of progressive recurrent stage IV ovarian carcinoma. She has cell carcinoma status post 6 cycles of chemotherapy completed in 11/2016, admitted to the hospital in the last admission with signs and symptoms of nausea, vomiting, abdominal pain and findings of partial small bowel obstruction. The patient at that time was kept NPO, give IV fluids, kept on clear liquids that went to full-liquids and then discharged for further followup at her [place] [facility] at the [facility], Dr. Soraida Ni with instructions based on the CAT that we did. She had progression and recurrence of disease more than 6 months later and that she may be eligible for ongoing systemic chemotherapy for recurrent disease. The patient unfortunately prior to the status post chemotherapy, this Monday got admitted again to [facility] with signs and symptoms of again partial bowel obstruction. Since admission, patient has being feeling a little bit better as a minimal paradox, hemodynamically stable, tolerating p.o. intake and a small bowel movements. She had no further pain and reports significant improvement from her presenting complaints. PHYSICAL EXAMINATION: VITAL SIGNS: Stable. T-max is 98.4, pulse is 71, blood pressure is 148/99, respirations 20, O2 sat is 97% on room air. GENERAL: The patient is a chronically ill looking female who is in bed in no acute distress. HEENT: Head is normocephalic and atraumatic. Conjunctivae pale. Sclerae are anicteric. Pupils are equally reactive to light and accommodation. Examination of the oropharynx reveals no oropharyngeal lesions. Tongue is moist. No ulcerations are noted. NECK: Supple. There is no adenopathy. LUNGS: Clear to percussion and auscultation. CARDIOVASCULAR SYSTEM: Reveals PMI within the fifth intercostal space inside the midclavicular line. ABDOMEN: Mildly distended. Normal bowel sounds are noted. No rebound is noted. The patient has mild tenderness. Palpation in the right lower quadrant of her abdomen site of a small bowel obstruction. EXTREMITIES: Reveals no cyanosis, clubbing or edema. NEUROLOGIC: Reveals higher functions to be normal. No focal deficits are noted. LABORATORY DATA: Reviewed and white count is 5.7, hemoglobin 12.1, hematocrit 26.3 with a platelet count 220,000. Electrolytes are unremarkable. AST, ALT, alkaline phosphatase appear to be within normal limits. Total protein is 6.1 with an albumin of 3.5. The patient's CAT scan from 10/05/2017 during the prior admission was reviewed. The patient has definitely evidence of recurrence of disease in the form of serosal implants, pelvic ascites, and omental metastasis. There is also evidence of a 2.7 x 4 cm mass in the mesentery to right lower quadrant with partial small bowel obstruction. ASSESSMENT: The patient has metastatic recurrent ovarian carcinoma, currently being evaluated for reduction and initiation of new chemo treatment with Carboplatin . Spoken to Dr. Soraida Ni day before yesterday when she had called me and the plan was she would adhere [facility]. In the meantime, they have done 24-hour urine for creatinine clearance and echocardiogram and she will be transmitted to the doctor once those results are available. If the patient continues to do well, she may be discharged tomorrow for further follow up as an outpatient. I told the patient and instructed her to stay just on full-liquid diet at this point, and to stay on Ensure or any of those nutritional supplements 4 to 6 cans a day till she gets initiated with a fresh course of chemotherapy. Also, I suggested to Dr. Ni to have a repeat biopsy done of mesenteric mass and be send to [facility] to see and check for the new action of as far as the cancer is concerned. The patient will be transmitting that information also to her doctor at the [facility]. Please make a note this is a complex patient with multiple comorbid medical issues. PLAN: At this time is she is clinically stable, will be discharged in a.m. to follow the patient as an outpatient. Time spent with the patient correlating all the information and data is more than 45 minutes, out of which more than 50% of the time is spent in face to face encounter. Hermilo Manning MD [facility] # [id number]
== END 2017-10-08 10:01 | disposition home or self-care (01) | DRG 389 ==
LOC: ED 05:08 → ERH 09:08 → 3RNO 10:26
PROVIDERS: ADMIT Student in an Organized Health Care Education/Training Program; ATTEND Student in an Organized Health Care Education/Training Program
DX: K56.600 Partial intestinal obstruction, unspecified as to cause (principal); C78.7 Secondary malignant neoplasm of liver and intrahepatic bile duct; C78.6 Secondary malignant neoplasm of retroperitoneum and peritoneum; R18.8 Other ascites; K57.90 Diverticulosis of intestine, part unspecified, without perforation or abscess without bleeding; I34.1 Nonrheumatic mitral (valve) prolapse; K21.9 Gastro-esophageal reflux disease without esophagitis; Z85.43 Personal history of malignant neoplasm of ovary; Z92.21 Personal history of antineoplastic chemotherapy; Z90.710 Acquired absence of both cervix and uterus; Z90.49 Acquired absence of other specified parts of digestive tract; Z80.3 Family history of malignant neoplasm of breast; Z82.49 Family history of ischemic heart disease and other diseases of the circulatory system; Z83.6 Family history of other diseases of the respiratory system

== ENCOUNTER 2017-11-14 05:01 | Emergency (ER) | payer BC ==
[2017-11-14 05:05] VITALS: BMI 30.2
[2017-11-14] MEDS ORDERED: Sodium Chloride 0.9% 1,000 ML IV STA (05:10)
[2017-11-14] MEDS ORDERED: Albuterol-Ipratrop 3 mg / 0.5 (3 ml) UD IH STA (05:42)
--- NOTE | 2017-11-14 05:48 | ED PDOC ---
Arrival/HPI - General Chief Complaint: Shortness Of Breath Time Seen by Provider: 11/14/17 05:03 Historian: Patient - History of Present Illness Narrative History of Present Illness (Text): 11/14/17 05:42 57 year old female, whose past medical history includes Stage 4 ovarian cancer and peritoneal cancer s/p total hysterectomy and chemotherapy, GERD, diverticulosis, and mitral valve prolapse, presents to the emergency department with labored breathing and nausea, since one day. Patient states she has been feeling generally ill every since introducing neulasta with her chemotherapy. Patient informs of vomiting very acidic yellow stomach contents. Patient informs inability to eat. Patient denies any other complaints. Time/Duration: 24 hours Symptom Onset: Gradual Symptom Course: Unchanged Past Medical History - Provider Review Nursing Documentation Reviewed: Yes - Infectious Disease Hx of Infectious Diseases: None - Past Medical History Past Medical History: No Previous - Cardiac Hx Cardiac Disorders: Yes Hx Mitral Valve Prolapse: Yes - Pulmonary Hx Respiratory Disorders: Yes - Neurological Hx Neurological Disorder: No - HEENT Hx HEENT Disorder: No - Renal Hx Renal Disorder: No - Endocrine/Metabolic Hx Endocrine Disorders: No - Hematological/Oncological Hx Blood Disorders: Yes Hx Cancer: Yes (ABDOMINAL CARCINOMATOSIS,OVARIAN CA STAGE 4 METS TO SPLEEN, LIVER 10-05-17) Hx Chemotherapy: Yes (7 CYCLES LAST WAS WILL START AGAIN ON 09-27-17) - Integumentary Hx Dermatological Disorder: Yes - Musculoskeletal/Rheumatological Hx Musculoskeletal Disorders: No Hx Falls: No - Gastrointestinal Hx Gastrointestinal Disorders: Yes (ASCITES) Hx Diverticulitis: Yes Hx Gastroesophageal Reflux: Yes - Genitourinary/Gynecological Hx Genitourinary Disorders: Yes (OVARIAN CA STAGE 4,HYSTERECTOMY,BILATERAL SALPHINGO OOPHORECTOMY) Other/Comment: C SECTION - Psychiatric Hx Psychophysiologic Disorder: No Hx Substance Use: No - Surgical History Hx Cholecystectomy: Yes Other/Comment: Polyps removed,picc to right upper arm in and out. - Anesthesia Hx Anesthesia: Yes Hx Anesthesia Reactions: No Hx Malignant Hyperthermia: No - Suicidal Assessment Feels Threatened In Home Enviroment: No Family/Social History - Physician Review Nursing Documentation Reviewed: Yes Family/Social History: No Known Family HX Smoking Status: Never Smoked Hx Alcohol Use: No Hx Substance Use: No Hx Substance Use Treatment: No Allergies/Home Meds Allergies/Adverse Reactions: Allergies No Known Allergies Allergy (Verified 11/14/17 05:16) Home Medications: Home Meds Medication Instructions Recorded Confirmed Pantoprazole [Protonix EC Tab] 40 mg PO DAILY 09/27/17 11/14/17 Review of Systems - Physician Review All systems were reviewed & negative as marked: Yes - Review of Systems Constitutional: Normal Eyes: Normal ENT: Normal Respiratory: SOB Cardiovascular: Chest Pain Gastrointestinal: Nausea, Vomiting, Appetite Changes Genitourinary Female: Normal Musculoskeletal: Normal Skin: Normal Neurological: Normal Endocrine: Normal Hemo/Lymphatic: Normal Psychiatric: Normal Physical Exam Vital Signs Reviewed: Yes Vital Signs Temp Pulse Resp BP Pulse Ox 11/14/17 05:12 98.3 F 90 16 146/88 98 Temperature: Afebrile Blood Pressure: Normal Pulse: Regular Respiratory Rate: Normal Appearance: Positive for: Well-Appearing, Non-Toxic, Comfortable Pain Distress: None Mental Status: Positive for: Alert and Oriented X 3 - Systems Exam Head: Present: Atraumatic, Normocephalic Pupils: Present: PERRL Extroacular Muscles: Present: EOMI Conjunctiva: Present: Normal Mouth: Present: Moist Mucous Membranes Neck: Present: Normal Range of Motion Respiratory/Chest: Present: Decreased Breath Sounds (diminished bilaterally), Tender to Palpation (slight tenderness to palpation of anterior chest) Cardiovascular: Present: Regular Rate and Rhythm, Normal S1, S2. No: Murmurs Abdomen: No: Tenderness, Distention, Peritoneal Signs Back: Present: Normal Inspection Upper Extremity: Present: Normal Inspection. No: Cyanosis, Edema Lower Extremity: Present: Normal Inspection. No: Edema (no lower extremity edema) Neurological: Present: GCS=15, CN II-XII Intact, Speech Normal Skin: Present: Warm, Dry, Normal Color. No: Rashes Psychiatric: Present: Alert, Oriented x 3, Normal Insight, Normal Concentration Medical Decision Making ED Course and Treatment: 11/14/17 05:51 Impression: 57 year old female presents with labored breathing and nausea. Plan: -- Labs -- EKG -- Duoneb -- Reglan -- Urinalysis -- Reassess and disposition Prior Visits: Notes and results from previous visits were reviewed. Progress Notes: - RAD Interpretation Radiology Orders: 11/14/17 05:09 CHEST PORTABLE [RAD] Stat - Medication Orders Current Medication Orders: Sodium Chloride (Sodium Chloride 0.9%) 1,000 mls @ 999 mls/hr IV .Q1H1M STA Stop: 11/14/17 06:10 - Scribe Statement The provider has reviewed the documentation as recorded by the Scribe Osman Cerrato Provider Scribe Attestation: All medical record entries made by the Scribe were at my direction and personally dictated by me. I have reviewed the chart and agree that the record accurately reflects my personal performance of the history, physical exam, medical decision making, and the department course for this patient. I have also personally directed, reviewed, and agree with the discharge instructions and disposition. Disposition/Present on Arrival - Present on Arrival History of DVT/PE: No History of Uncontrolled Diabetes: No Urinary Catheter: No History of Decub. Ulcer: No History Surgical Site Infection Following: None - Disposition Referrals: Shaylee ALBERT,All Joyce MD [Primary Care Provider] - Follow up with primary
[2017-11-14 06:08] LABS: BASO # 0.08 K/mm3 (0.0-2.0); BASO % 0.5 % (0.0-3.0); EOS % 0.2 % (1.5-5.0); GRAN # 12.84 (1.4-6.5); GRAN % 73.5 % (50.0-68.0); HEMOGLOBIN 12.6 g/dL (12.0-16.0); LYMPH # 2.3 (1.2-3.4); LYMPH % 13.2 % (22.0-35.0); MEAN CORPUSCULAR HEMOGLOBIN 29.2 pg (25.0-35.0); MEAN CORPUSCULAR HGB CONC 33.5 g/dl (31.0-37.0); MEAN PLATELET VOLUME 10.3 fl (7.0-11.0); MONO # 2.2 (0.1-0.6); MONO % 12.6 % (1.0-6.0); PLATELET COUNT 321 10^3/uL (120.0-450.0); RBC 4.32 10^6/uL (3.5-6.1); RED CELL DISTRIBUTION WIDTH 15.6 % (11.5-14.5); WHITE BLOOD COUNT 17.5 10^3/ul (4.5-11.0)
[2017-11-14 06:09] LABS: VENOUS BLOOD GAS PO2 37 mm/Hg (30-55); VENOUS BLOOD PH 7.46 (7.32-7.43)
[2017-11-14 06:13] LABS: ALB/GLOB RATIO 1.4 (1.1-1.8); ALBUMIN 4.4 g/dL (3.0-4.8); ALT/SGPT 23 U/L (7-56); AST/SGOT 43 U/L (14-36); BLOOD UREA NITROGEN 15 mg/dL (7-21); CALCIUM 10.2 mg/dL (8.4-10.5); GFR NON-AFRICAN AMERICAN > 60; LIPASE 65 U/L (23-300)
[2017-11-14 06:26] LABS: TROPONIN I < 0.01 ng/mL
[2017-11-14 06:55] VITALS: RESP 18
[2017-11-14] MEDS ORDERED: Iodixanol 320 MG/ML 100 ML BOTTLE IV ONE (07:11)
--- NOTE | 2017-11-14 07:19 | ED PDOC ---
Physical Exam Vital Signs Reviewed: Yes Vital Signs Temp Pulse Resp BP Pulse Ox 11/14/17 08:00 98.2 F 95 H 18 151/76 H 99 11/14/17 06:54 98.0 F 114 H 18 141/74 100 11/14/17 06:52 98 H 18 141/74 100 11/14/17 05:40 21 99 11/14/17 05:12 98.3 F 90 16 146/88 98 Temperature: Afebrile Blood Pressure: Normal Pulse: Regular Respiratory Rate: Normal Appearance: Positive for: Well-Appearing, Non-Toxic, Comfortable Pain Distress: None Mental Status: Positive for: Alert and Oriented X 3 - Systems Exam Head: Present: Atraumatic, Normocephalic Pupils: Present: PERRL Extroacular Muscles: Present: EOMI Conjunctiva: Present: Normal Mouth: Present: Moist Mucous Membranes Neck: Present: Normal Range of Motion Respiratory/Chest: Present: Clear to Auscultation, Good Air Exchange. No: Respiratory Distress, Accessory Muscle Use Cardiovascular: Present: Regular Rate and Rhythm, Normal S1, S2. No: Murmurs Abdomen: No: Tenderness, Distention, Peritoneal Signs Back: Present: Normal Inspection Upper Extremity: Present: Normal Inspection. No: Cyanosis, Edema Lower Extremity: Present: Normal Inspection. No: Edema Neurological: Present: GCS=15, CN II-XII Intact, Speech Normal Skin: Present: Warm, Dry, Normal Color. No: Rashes Psychiatric: Present: Alert, Oriented x 3, Normal Insight, Normal Concentration Medical Decision Making ED Course and Treatment: 11/14/17 07:19 Case endorsed to me by Dr. Pitts for pending reassessment and final disposition. Patient is a 57 year old female, who presented to the ED earlier today complaining of labored breathing, nausea and vomiting. Patient currently resting in bed in no acute distress. Patient no longer has shortness of breath and denies any chest pain. Patient states her symptoms have resolved and is currently not feeling any nausea. On exam, patient's lungs are clear however patient has an elevated d-dimer. CT has been ordered and is currently pending. Patient presents no new medical complaints. 11/14/17 08:30 CTA reviewed by radiologist, shows: FINDINGS: Pulmonary arteries: Unremarkable. No pulmonary embolism. Aorta: No acute findings. No thoracic aortic aneurysm. Lungs: There is right basilar atelectasis. No mass. Pleural space: Unremarkable. No significant effusion. No pneumothorax. Heart: Unremarkable. No cardiomegaly. No significant pericardial effusion. No evidence of RV dysfunction. Bones/joints: Sagittal reconstructed images suggest a mid sternal fracture. In the absence of trauma, this appearance is likely due to patient motion artifact. Please correlate with any recent trauma history. No dislocation. Soft tissues: Unremarkable. Lymph nodes: Unremarkable. No enlarged lymph nodes. Intraperitoneal space: There is peritoneal nodularity in the upper abdomen, not fully characterized on this exam. Intraperitoneal metastases have been reported previously. There is moderate ascites. IMPRESSION: 1. There is peritoneal nodularity in the upper abdomen, not fully characterized on this exam. Intraperitoneal metastases have been reported previously. 2. There is moderate ascites. 3. Sagittal reconstructed images suggest a mid sternal fracture. In the absence of trauma, this appearance is likely due to patient motion artifact. Please correlate with any recent trauma history 11/14/17 09:04 Chest X-ray reviewed by radiologist, shows no active disease. 11/14/17 09:[address] June, who is aware and agrees with Emergency department management plan, agrees that patient can follow up with him tomorrow as an outpatient for reevaluation. WBC most likely due to chemo treatment and in light of +UA, will treat with Keflex QID x 7 days. Patient is tolerating PO fluids and the pills. - Lab Interpretations Lab Results: 11/14/17 05:40 11/14/17 05:40 Lab Results 11/14/17 06:49: Urine Color Yellow, Urine Appearance Clear, Urine pH 6.5, Ur Specific Delight <= 1.005, Urine Protein Negative, Urine Glucose (UA) Negative, Urine Ketones Trace H, Urine Blood Negative, Urine Nitrate Negative, Urine Bilirubin Negative, Urine Urobilinogen 0.2, Ur Leukocyte Esterase Moderate H, Urine RBC 0 - 2, Urine WBC 15 - 20, Ur Epithelial Cells 3 - 4, Urine Bacteria Mod 11/14/17 05:40: Sodium 137, Chloride 102, Potassium 3.9, Carbon Dioxide 25, Anion Gap 14, BUN 15, Creatinine 0.8, Est GFR ( Amer) > 60, Est GFR (Non- Af Amer) > 60, Random Glucose 90, Calcium 10.2, Total Bilirubin 0.7, AST 43 H D , ALT 23, Alkaline Phosphatase 125, Troponin I < 0.01, Total Protein 7.4, Albumin 4.4, Globulin 3.0, Albumin/Globulin Ratio 1.4, Lipase 65 11/14/17 05:40: pO2 37, VBG pH 7.46 H, VBG pCO2 36.0 L, VBG HCO3 25.6, VBG Total CO2 26.7, VBG O2 Sat (Calc) 81.6 H, VBG Base Excess 2.0, VBG Potassium 3.7 , Sodium 137.0, Chloride 105.0, Glucose 86, Lactate 1.8, FiO2 21.0, Venous Blood Potassium 3.7 11/14/17 05:40: WBC 17.5 H D, RBC 4.32, Hgb 12.6, Hct 37.6, MCV 87.0 D, MCH 29.2, MCHC 33.5, RDW 15.6 H, Plt Count 321, MPV 10.3, Gran % 73.5 H, Lymph % ( Auto) 13.2 L, [place] % (Auto) 12.6 H, Eos % (Auto) 0.2 L, Baso % (Auto) 0.5, Gran # 12.84 H, Lymph # (Auto) 2.3, [place] # (Auto) 2.2 H, Eos # (Auto) 0.0, Baso # ( Auto) 0.08, Neutrophils % (Manual) 80 H, Band Neutrophils % 1, Lymphocytes % ( Manual) 6 L, Monocytes % (Manual) 10 H, Eosinophils % (Manual) 1, Metamyelocytes % 2, Platelet Evaluation Normal, Anisocytosis (manual) Slight 11/14/17 05:20: D-Dimer, Quantitative 631 H - RAD Interpretation Radiology Orders: 11/14/17 05:09 CHEST PORTABLE [RAD] Stat 11/14/17 07:04 ANGIO CHEST PE PROTOCOL [CT] Stat - Medication Orders Current Medication Orders: Sodium Chloride (Sodium Chloride 0.9%) 1,000 mls @ 100 mls/hr IV .Q10H GARCIA Last Admin: 11/14/17 09:23 Dose: 100 mls/hr eMAR Start Stop Document 11/14/17 09:23 ALEXANDRE (Rec: 11/14/17 09:23 [facility] [id number]) Intravenous Solution Start Date 11/14/17 Start Time 09:23 Discontinued Medications Albuterol/Ipratropium (Duoneb 3 Mg/0.5 Mg (3 Ml) Ud) 3 ml IH STAT STA Stop: 11/14/17 05:43 Last Admin: 11/14/17 05:20 Dose: 3 ml Cephalexin Monohydrate (Keflex) 500 mg PO STAT STA PRN Reason: Protocol Stop: 11/14/17 09:12 Last Admin: 11/14/17 09:23 Dose: 500 mg Sodium Chloride (Sodium Chloride 0.9%) 1,000 mls @ 999 mls/hr IV .Q1H1M STA Stop: 11/14/17 06:10 Last Admin: 11/14/17 05:20 Dose: 999 mls/hr eMAR Start Stop Document 11/14/17 05:20 RD (Rec: 11/14/17 06:17 RD [id number]) Intravenous Solution Start Date 11/14/17 Start Time 05:20 End Date 11/14/17 End time 06:20 Total Infusion Time 60 Metoclopramide HCl (Reglan) 10 mg IVP STAT STA Stop: 11/14/17 05:43 Last Admin: 11/14/17 06:00 Dose: 10 mg IVP Administration Document 11/14/17 06:00 RD (Rec: 11/14/17 06:18 RD [id number]) Charges for Administration # of IVP Administrations 1 - Scribe Statement The provider has reviewed the documentation as recorded by the Scribe Zane Washington. All medical record entries made by the Scribe were at my direction and personally dictated by me. I have reviewed the chart and agree that the record accurately reflects my personal performance of the history, physical exam, medical decision making, and the department course for this patient. I have also personally directed, reviewed, and agree with the discharge instructions and disposition. Disposition/Present on Arrival - Present on Arrival Any Indicators Present on Arrival: No History of DVT/PE: No History of Uncontrolled Diabetes: No Urinary Catheter: No History of Decub. Ulcer: No History Surgical Site Infection Following: None - Disposition Have Diagnosis and Disposition been Completed?: Yes Diagnosis: UTI (urinary tract infection), Vomiting, Shortness of breath, Chest pain Disposition: HOME/ ROUTINE Disposition Time: 09:45 Patient Plan: Discharge Condition: IMPROVED Discharge Instructions (ExitCare): Urinary Tract Infections in Adults, Chest Pain, Shortness of Breath (Dyspnea) (DC), Nausea and Vomiting, Adult (DC), Chest Pain (ED) Additional Instructions: MARILYN WARD, thank you for letting us take care of you today. Your provider was Polo Bolanos DO and you were treated for UTI, Shortness of Breathe and Chest Pain with Vomiting. The emergency medical care you received today was directed at your acute symptoms. If you were prescribed any medication, please fill it and take as directed. It may take several days for your symptoms to resolve. Return to the Emergency Department if your symptoms worsen, do not improve, or if you have any other problems. Please contact your doctor or call one of the physicians/clinics you have been referred to that are listed on the Patient Visit Information form that is included in your discharge packet. Bring any paperwork you were given at discharge with you along with any medications you are taking to your follow up visit. Our treatment cannot replace ongoing medical care by a primary care provider outside of the emergency department. Thank you for allowing the [facility] team to be part of your care today. If you had an X-Ray or CT scan: A Radiologist will review the ED reading if any change in treatment is needed we will contact you. If you had a blood, urine, or wound culture: It will take several days for the results, if any change in treatment is needed we will contact you. If you had an STI test: It will take 48 hours for the results. Please call after 1 week if you have not heard back. Prescriptions: Cephalexin [Keflex] 500 mg PO QID #28 capsule Ondansetron ODT [Zofran ODT] 4 mg PO Q6 #20 odt Referrals: Shaylee ALBERT,All Joyce MD [Primary Care Provider] - Follow up with primary Forms: [employer] ([place]), WORK NOTE
[2017-11-14 07:24] LABS: PH,URINE 6.5 (4.7-8.0); URINE BILIRUBIN NEGATIVE (NEGATIVE); URINE BLOOD NEGATIVE (NEGATIVE); URINE GLUCOSE (UA) NEGATIVE (NEGATIVE); URINE LEUKOCYTE ESTERASE MODERATE Leu/uL (NEGATIVE); URINE PROTEIN NEGATIVE mg/dL (<30 mg/dL); URINE UROBILINOGEN 0.2 E.U./dL (<1 E.U./dL)
[2017-11-14 07:28] LABS: URINE APPEARANCE CLEAR (CLEAR); URINE COLOR YELLOW (YELLOW)
[2017-11-14 07:48] LABS: URINE BACTERIA MOD (NEG); URINE RBC 0 - 2 /hpf (0-2); URINE WBC 15 - 20 /hpf (0-6)
[2017-11-14 08:02] VITALS: TEMP 98.2; O2SAT 99
[2017-11-14 08:07] LABS: ANISOCYTOSIS SLIGHT; BAND 1 % (0-2); EOSINOPHIL 1 % (0.0-3.0); LYMPHOCYTE 6 % (22.0-35.0); METAMYELOCYTE 2 %; MONOCYTE 10 % (1.0-6.0); NEUTROPHIL 80 % (50.0-70.0); PLATELET ESTIMATE NORMAL (NORMAL)
--- NOTE | 2017-11-14 08:29 | CT ---
EXAM: CT Angiography Chest With Intravenous Contrast CLINICAL HISTORY: 57 years old, female; Signs and symptoms; Shortness of breath; Additional info: SOB w/ reproducible chest pain TECHNIQUE: Axial computed tomographic angiography images of the chest with intravenous contrast using pulmonary embolism protocol. All CT scans at this facility use at least one of these dose optimization techniques: automated exposure control; mA and/or kV adjustment per patient size (includes targeted exams where dose is matched to clinical indication); or iterative reconstruction. MIP reconstructed images were created and reviewed. Coronal and sagittal reformatted images were created and reviewed. CONTRAST: 100 mL of VISI 320 administered intravenously. COMPARISON: CT - ANGIO CHEST/ABDOMEN/PELVIS 04/21/2016 10:57 AM FINDINGS: Pulmonary arteries: Unremarkable. No pulmonary embolism. Aorta: No acute findings. No thoracic aortic aneurysm. Lungs: There is right basilar atelectasis. No mass. Pleural space: Unremarkable. No significant effusion. No pneumothorax. Heart: Unremarkable. No cardiomegaly. No significant pericardial effusion. No evidence of RV dysfunction. Bones/joints: Sagittal reconstructed images suggest a mid sternal fracture. In the absence of trauma, this appearance is likely due to patient motion artifact. Please correlate with any recent trauma history. No dislocation. Soft tissues: Unremarkable. Lymph nodes: Unremarkable. No enlarged lymph nodes. Intraperitoneal space: There is peritoneal nodularity in the upper abdomen, not fully characterized on this exam. Intraperitoneal metastases have been reported previously. There is moderate ascites. IMPRESSION: 1. There is peritoneal nodularity in the upper abdomen, not fully characterized on this exam. Intraperitoneal metastases have been reported previously. 2. There is moderate ascites. 3. Sagittal reconstructed images suggest a mid sternal fracture. In the absence of trauma, this appearance is likely due to patient motion artifact. Please correlate with any recent trauma history.
[2017-11-14] MEDS ORDERED: cefTRIAXone 1 gm 1 GM/100 ML BAG IVPB STA (08:36)
[2017-11-14] MEDS ORDERED: Sodium Chloride 0.9% 1,000 ML IV SCH (09:00)
--- NOTE | 2017-11-14 09:29 | RAD ---
Date of service: 11/14/2017 HISTORY: sob COMPARISON: 04/21/2016 FINDINGS: LUNGS: No active pulmonary disease. PLEURA: No significant pleural effusion identified, no pneumothorax apparent. CARDIOVASCULAR: Normal. OSSEOUS STRUCTURES: No significant abnormalities. VISUALIZED UPPER ABDOMEN: Normal. OTHER FINDINGS: None. IMPRESSION: No active disease.
[2017-11-14 09:47] VITALS: BP 137/84; PULSE 100
--- NOTE | 2017-11-14 14:17 | CARD ---
APPROVED REPORT Date of service: 11/14/2017 EKG Measurement Heart [id number] <Conclusion> Normal sinus rhythm normal ECG
== END 2017-11-14 09:45 | disposition home or self-care (01) ==
LOC: ED 05:01
DX: N39.0 Urinary tract infection, site not specified (principal); R07.9 Chest pain, unspecified; R06.02 Shortness of breath; R11.10 Vomiting, unspecified; I34.1 Nonrheumatic mitral (valve) prolapse
CPT/HCPCS: 71045; 71275; 80053; 81001; 82803; 83690; 84484; 85025; 85378; 87040; 87086; 93005; 96361; 96374; 99285; J2765; J7030; Q9967

== ENCOUNTER 2018-03-27 09:59 | Outpatient (CLI) | payer BC | END 2018-03-27 10:00 | disposition home or self-care (01) | LOC: RAD 09:59 | DX: C76.3 Malignant neoplasm of pelvis (principal); C56.9 Malignant neoplasm of unspecified ovary; C56.1 Malignant neoplasm of right ovary; C56.2 Malignant neoplasm of left ovary; Z79.899 Other long term (current) drug therapy ==

== ENCOUNTER 2018-06-11 14:41 | Outpatient (CLI) | payer BC | END 2018-06-11 14:42 | disposition home or self-care (01) | LOC: RAD 14:41 ==

== ENCOUNTER 2018-06-13 09:33 | Outpatient (CLI) | payer BC | END 2018-06-13 09:34 | disposition home or self-care (01) | LOC: RAD 09:33 | DX: C76.3 Malignant neoplasm of pelvis (principal); C56.9 Malignant neoplasm of unspecified ovary; C56.1 Malignant neoplasm of right ovary; C56.2 Malignant neoplasm of left ovary ==